=== PATIENT | female | born 2000 | race Two or more races ===

== ENCOUNTER 2018-01-15 10:58 | Emergency (ER) | payer MEDICAID ==
[2018-01-15] MEDS ORDERED: Dexamethasone 10 MG/ML SDV IM ONE (11:32)
[2018-01-15] MEDS ORDERED: Lidocaine 2% Viscous Solution 15 ML Cup PO ONE (11:33)
--- NOTE | 2018-01-15 11:37 | EDM.PDOC ---
ED HPI GENERAL MEDICAL PROBLEM - General Chief Complaint: ENT Problem Stated Complaint: SORE THROAT Time Seen by Provider: 01/15/18 11:27 - History of Present Illness INITIAL COMMENTS - FREE TEXT/NARRATIVE: HISTORY AND PHYSICAL: History of present illness: The patient is a healthy 17-year-old female who presents with 4 days of a sore throat and only having a fever on the first day. She has been able to eat or drink but only small amounts as there is discomfort. She has had no cough runny nose chest pain shortness of breath or abdominal pain. She has some pain radiating to her left ear drainage. She has no discrete neck pain or stiffness and no headache or sinus congestion. She has been taking Children's Motrin 3 teaspoons per dose for discomfort Review of systems: As per history of present illness and below otherwise all systems reviewed and negative. Past medical history: As per history of present illness and as reviewed below otherwise noncontributory. Surgical history: As per history of present illness and as reviewed below otherwise noncontributory. Social history: No reported history of drug or alcohol abuse. Family history: As per history of present illness and as reviewed below otherwise noncontributory. Physical exam: General: Well-developed well-nourished female is nontoxic and tearful on my evaluation. Vital signs are noted by me. Voice is slightly hoarse but is not muffled and she is not drooling. HEENT: Atraumatic, normocephalic, pupils reactive, negative for conjunctival pallor or scleral icterus, mucous membranes moist, throat clear of exudates but tonsils are enlarged and reddened bilaterally but not kissing, uvula is midline , there is anterior cervical adenopathy but no posterior adenopathy and no nuchal rigidity, TMs are normal bilaterally, neck supple, nontender, trachea midline. Lungs: Clear to auscultation, breath sounds equal bilaterally, chest nontender. Heart: S1S2, regular rate and rhythm no murmurs Abdomen: Soft, nondistended, nontender. NABS Pelvis: Deferred Genitourinary: Deferred. Rectal: Deferred. Extremities: Atraumatic, negative for cords or calf pain. Neurovascular unremarkable. Neuro: Awake, alert, oriented. Cranial nerves II through XII unremarkable. Cerebellum unremarkable. Motor and sensory unremarkable throughout. Exam nonfocal. Diagnostics: Therapeutics: Decadron, viscous lidocaine Impression: Tonsillitis Definitive disposition and diagnosis as appropriate pending reevaluation and review of above. throat Pain Score (Numeric/FACES): 10 - Related Data Allergies Allergy/AdvReac Type Severity Reaction Status Date / Time No Known Allergies Allergy Verified 01/15/18 11:28 Home Meds: Home Meds . [No Known Home Meds] 01/15/18 [History] Past Medical History - Past Health History Medical/Surgical History: Denies Medical/Surgical History Social & Family History - Family History Family Medical History: Noncontributory - Tobacco Use Smoking Status *Q: Never Smoker - Recreational Drug Use Recreational Drug Use: No ED ROS GENERAL - Review of Systems Review Of Systems: ROS reveals no pertinent complaints other than HPI. ED EXAM, GENERAL - Physical Exam Exam: See Below (See dictation) Course - Vital Signs Last Recorded V/S: Last Vital Signs Temp 36.2 C 01/15/18 11:29 Pulse 102 H 01/15/18 11:29 Resp 20 01/15/18 11:29 BP 118/73 01/15/18 11:29 Pulse Ox 99 01/15/18 11:29 - Orders/Labs/Meds Orders: Active Orders 24 hr Category Date Time Status Dexamethasone Med 01/15/18 11:32 Once 10 mg IM ONETIME ONE Lidocaine 2% [Xylocaine 2% Viscous] Med 01/15/18 11:33 Once 15 ml PO ONETIME ONE Medication Orders Dexamethasone (Dexamethasone) 10 mg IM ONETIME ONE Stop: 01/15/18 11:33 Lidocaine HCl (Xylocaine 2% Viscous) 15 ml PO ONETIME ONE Stop: 01/15/18 11:34 Meds: Medications Generic Name Dose Route Start Last Admin Trade Name Freq PRN Reason Stop Dose Admin Dexamethasone 10 mg 01/15/18 11:32 Dexamethasone IM 01/15/18 11:33 ONETIME ONE Lidocaine HCl 15 ml 01/15/18 11:33 Xylocaine 2% Viscous PO 01/15/18 11:34 ONETIME ONE Departure - Departure Time of Disposition: 11:36 Disposition: Home, Self-Care 01 Condition: Good Clinical Impression: Tonsillitis - Discharge Information Referrals: PCP,None [Primary Care Provider] - Additional Instructions: The following information is given to patients seen in the emergency department who are being discharged to home. This information is to outline your options for follow-up care. We provide all patients seen in our emergency department with a follow-up referral. The need for follow-up, as well as the timing and circumstances, are variable depending upon the specifics of your emergency department visit. If you don't have a primary care physician on staff, we will provide you with a referral. We always advise you to contact your personal physician following an emergency department visit to inform them of the circumstance of the visit and for follow-up with them and/or the need for any referrals to a consulting specialist. The emergency department will also refer you to a specialist when appropriate. This referral assures that you have the opportunity for followup care with a specialist. All of these measure are taken in an effort to provide you with optimal care, which includes your followup. Under all circumstances we always encourage you to contact your private physician who remains a resource for coordinating your care. When calling for followup care, please make the office aware that this follow-up is from your recent emergency room visit. If for any reason you are refused follow-up, please contact the [facility] emergency department at and ask to speak to the emergency department charge nurse. [facility] Primary care- [place] [address] Please use [id number] Tylenol 650 mg or 1gram per dose orally every 6-8 hours for pain and/or take Motrin 600-800 mg per dose every 6-8 hours. Please use antibiotics as directed and call and schedule a follow-up appointment in our clinic for reevaluation and further care. Push hydration and soft diet and return to ER as needed and as discussed - My Orders Last 24 Hours: My Active Orders 01/15/18 11:32 Dexamethasone 10 mg IM ONETIME ONE 01/15/18 11:33 Lidocaine 2% [Xylocaine 2% Viscous] 15 ml PO ONETIME ONE - Assessment/Plan Last 24 Hours: My Active Orders 01/15/18 11:32 Dexamethasone 10 mg IM ONETIME ONE 01/15/18 11:33 Lidocaine 2% [Xylocaine 2% Viscous] 15 ml PO ONETIME ONE
== END 2018-01-15 12:25 | disposition home or self-care (01) ==
LOC: MW.ED 10:58
DX: J03.90 Acute tonsillitis, unspecified (principal)
CPT/HCPCS: 96372; 99282; A9270; J1100

== ENCOUNTER 2018-01-16 15:29 | Inpatient (IN) | payer OTHER, MEDICAID ==
[2018-01-16] MEDS ORDERED: Sodium Chloride 0.9% 10 ML Syringe FLUSH PRN (15:49)
[2018-01-16] MEDS ORDERED: Sodium Chloride 0.9% 2.5 ML Syringe FLUSH PRN (15:49)
[2018-01-16] MEDS ORDERED: cefTRIAXone 2 GM in Premix Bag 1 BAG IV ONE (15:50)
[2018-01-16] MEDS ORDERED: Sodium Chloride 0.9% 1,000 ML IV ONE ×2 (15:50→19:13)
--- NOTE | 2018-01-16 16:04 | EDM.PDOC ---
<Dee Shah - Last Filed: 01/16/18 18:59> ED HPI GENERAL MEDICAL PROBLEM - General Chief Complaint: ENT Problem Stated Complaint: sore throat Time Seen by Provider: 01/16/18 15:30 - History of Present Illness INITIAL COMMENTS - FREE TEXT/NARRATIVE: HISTORY AND PHYSICAL: History of present illness: The patient is a healthy 17-year-old female who was seen here in the emergency department yesterday with a four-day history of sore throat who represented today for reevaluation for persistence of the symptoms and worsening. Yesterday the patient was evaluated and given Decadron here in the ED as well as viscous lidocaine and Augmentin for home and she says that she was unable to swallow the antibiotics that she did not take any so far. She says that the left side of her neck is more painful and she is having difficulty swallowing liquids and saliva and the pain is worsened. She has not had a fever and is afebrile here and was yesterday as well. Patient denies any cough runny nose nausea vomiting abdominal pain or shortness of breath. Review of systems: As per history of present illness and below otherwise all systems reviewed and negative. Past medical history: As per history of present illness and as reviewed below otherwise noncontributory. Surgical history: As per history of present illness and as reviewed below otherwise noncontributory. Social history: No reported history of drug or alcohol abuse. Family history: As per history of present illness and as reviewed below otherwise noncontributory. Physical exam: General: Well-developed well-nourished female who is tearful and crying on evaluation she is not drooling. Her voice is more hoarse and she refrains from speaking much due to discomfort. HEENT: Atraumatic, normocephalic, pupils reactive, negative for conjunctival pallor or scleral icterus, mucous membranes moist, neck supple, there is anterior cervical adenopathy left greater than right and there is some slight facial and soft tissue neck swelling on the left which is not well-defined, the tonsils are bilaterally enlarged but the left is slightly larger than the right and larger than yesterday's exam but the uvula is not deviated, trachea midline. When the patient attempts to range of motion the neck she states that there is discomfort and is very limited in this capacity. Lungs: Clear to auscultation, breath sounds equal bilaterally, chest nontender. No wheezing or stridor Heart: S1S2, regular rhythm and tachycardic rate of my evaluation no overt murmurs Abdomen: Soft, nondistended, nontender. NABS Pelvis: Deferred Genitourinary: Deferred. Rectal: Deferred. Extremities: Atraumatic, negative for cords or calf pain. Neurovascular unremarkable. Neuro: Awake, alert, oriented. Cranial nerves II through XII unremarkable. Cerebellum unremarkable. Motor and sensory unremarkable throughout. Exam nonfocal. Diagnostics: CBC CMP mono spot rapid strep lactic acid hCG EBV serology CT scan of the soft tissue neck Therapeutics: IV fluids Rocephin 1600: Case was discussed with our ENT physician conceptor Dr. Anderson who thinks that this is likely a case of antibiotic failure and probable mononucleosis. She recommends doing a Monospot as well as the send out serology for EBV; she says that oftentimes the Monospot will be negative for up to one week and the serology will be more helpful in the long-term care management. She agrees with routine lab evaluation IV fluids and antibiotics as the patient has not taken antibiotics. She does not feel that a second dose of Decadron is indicated as she received a dose yesterday. She does not feel that a CT scan is indicated with the clinical statement I am describing and feels that the patient will likely need observation admission for IV fluids and antibiotics and she will be available as needed for consultation. 1644: Testing results and clinical presentation of this patient were discussed with our hospitalist Dr. Garrett. He does not feel comfortable admitting this patient without further radiographic imaging of her neck to exclude anything that surgical. He is aware of my conversation with Dr. Anderson. He requests that CT scan of the soft tissue neck be performed before he will admit her for IV antibiotics and fluids. I will order that test and call him back with those results. 1805: I was just contacted by CT scan that the consulting radiologist feels that there is a lot of motion artifact on the patient's CT scan and wants a repeated. They will come and take the patient and do that right now and it will be explained to the patient. Case was endorsed to Dr. Shields to follow-up the repeat CT scan results and to discuss this case with our hospitalist Impression: Inability to tolerate by mouth fluids and antibiotics with tonsillitis Definitive disposition and diagnosis as appropriate pending reevaluation and review of above. Throat Pain Score (Numeric/FACES): 10 - Related Data Allergies Allergy/AdvReac Type Severity Reaction Status Date / Time No Known Allergies Allergy Verified 01/16/18 15:41 Home Meds: Home Meds . [No Known Home Meds] 01/15/18 [History] Past Medical History - Past Health History Medical/Surgical History: Denies Medical/Surgical History Social & Family History - Family History Family Medical History: Noncontributory - Tobacco Use Smoking Status *Q: Never Smoker - Recreational Drug Use Recreational Drug Use: No ED ROS GENERAL - Review of Systems Review Of Systems: ROS reveals no pertinent complaints other than HPI. ED EXAM, GENERAL - Physical Exam Exam: See Below (See dictation) Course - Vital Signs Last Recorded V/S: Last Vital Signs Temp 36.9 C 01/16/18 19:28 Pulse 93 01/16/18 19:02 Resp 16 01/16/18 19:02 BP 118/60 01/16/18 19:02 Pulse Ox 99 01/16/18 19:02 - Orders/Labs/Meds Orders: Active Orders 24 hr Category Date Time Status Soft Tissue Neck w Cont [CT] Stat Exams 01/16/18 16:45 Taken CULTURE STREP A CONFIRMATION [RM] Stat Lab 01/16/18 15:55 Results AMBER-MALLOY VIRUS PCR, QNT B [REF] Stat Lab 01/16/18 16:01 Received STREP SCRN A RAPID W CULT CONF [RM] Stat Lab 01/16/18 15:55 Ordered Clindamycin Phosphate in D5W [Cleocin in D5W] 900 mg Med 01/16/18 19:21 Active Premix Bag 1 bag IV ONETIME Sodium Chloride 0.9% [Normal Saline] 1,000 ml Med 01/16/18 19:13 Active IV .Bolus Sodium Chloride 0.9% [Saline Flush] Med 01/16/18 15:49 Active 10 ml FLUSH ASDIRECTED PRN Sodium Chloride 0.9% [Saline Flush] Med 01/16/18 15:49 Active 2.5 ml FLUSH ASDIRECTED PRN Saline Lock Insert [OM.PC] Stat Oth 01/16/18 15:48 Ordered Medication Orders Sodium Chloride (Normal Saline) 1,000 mls @ 999 mls/hr IV .Bolus ONE Stop: 01/16/18 20:13 Last Admin: 01/16/18 19:16 Dose: 999 mls/hr Clindamycin Phosphate 900 mg/ (Premix) 50 mls @ 100 mls/hr IV ONETIME ONE Stop: 01/16/18 19:50 Last Admin: 01/16/18 19:26 Dose: 100 mls/hr Sodium Chloride (Saline Flush) 10 ml FLUSH ASDIRECTED PRN PRN Reason: Keep Vein Open Sodium Chloride (Saline Flush) 2.5 ml FLUSH ASDIRECTED PRN PRN Reason: Keep Vein Open Labs: Laboratory Tests 01/16/18 01/16/18 01/16/18 Range/Units 15:58 15:58 15:58 WBC 18.82 H (4.0-11.0) K/uL RBC 4.33 (4.30-5.90) M/uL Hgb 14.2 (12.0-16.0) g/dL Hct 41.5 (36.0-46.0) % MCV 95.8 (80.0-98.0) fL MCH 32.8 H (27.0-32.0) pg MCHC 34.2 (31.0-37.0) g/dL RDW Std Deviation 45.9 (28.0-62.0) fl RDW Coeff of Scarlet 13 (11.0-15.0) % Plt Count 319 (150-400) K/uL MPV 11.20 (7.40-12.00) fL Neut % (Auto) 76.0 (48.0-80.0) % Lymph % (Auto) 13.9 L (16.0-40.0) % [place] % (Auto) 9.8 (0.0-15.0) % Eos % (Auto) 0.1 (0.0-7.0) % Baso % (Auto) 0.2 (0.0-1.5) % Neut # (Auto) 14.3 H (1.4-5.7) K/uL Lymph # (Auto) 2.6 H (0.6-2.4) K/uL [place] # (Auto) 1.8 H (0.0-0.8) K/uL Eos # (Auto) 0.0 (0.0-0.7) K/uL Baso # (Auto) 0.0 (0.0-0.1) K/uL Nucleated RBC % 0.0 /100WBC Nucleated RBCs # 0 K/uL Lactate 0.8 (0.20-2.00) mmol/L Sodium 139 (136-145) mmol/L Potassium 3.2 L (3.5-5.1) mmol/L Chloride 104 (98-107) mmol/L Carbon Dioxide 27.0 (21.0-32.0) mmol/L BUN 8 (7.0-18.0) mg/dL Creatinine 0.8 (0.6-1.0) mg/dL Est Cr Clr Drug Dosing 93.56 mL/min Estimated GFR (MDRD) > 60.0 ml/min Glucose 89 (74-106) mg/dL Calcium 9.1 (8.5-10.1) mg/dL Total Bilirubin 0.4 (0.2-1.0) mg/dL AST 17 (15-37) IU/L ALT 28 (14-63) IU/L Alkaline Phosphatase 59 (46-116) U/L Total Protein 8.1 (6.4-8.2) g/dL Albumin 3.4 (3.4-5.0) g/dL Globulin 4.7 H (2.0-3.5) g/dL Albumin/Globulin Ratio 0.7 L (1.3-2.8) HCG, Qual (NEG) Monoscreen (NEG) 01/16/18 Range/Units 15:58 WBC (4.0-11.0) K/uL RBC (4.30-5.90) M/uL Hgb (12.0-16.0) g/dL Hct (36.0-46.0) % MCV (80.0-98.0) fL MCH (27.0-32.0) pg MCHC (31.0-37.0) g/dL RDW Std Deviation (28.0-62.0) fl RDW Coeff of Scarlet (11.0-15.0) % Plt Count (150-400) K/uL MPV (7.40-12.00) fL Neut % (Auto) (48.0-80.0) % Lymph % (Auto) (16.0-40.0) % [place] % (Auto) (0.0-15.0) % Eos % (Auto) (0.0-7.0) % Baso % (Auto) (0.0-1.5) % Neut # (Auto) (1.4-5.7) K/uL Lymph # (Auto) (0.6-2.4) K/uL [place] # (Auto) (0.0-0.8) K/uL Eos # (Auto) (0.0-0.7) K/uL Baso # (Auto) (0.0-0.1) K/uL Nucleated RBC % /100WBC Nucleated RBCs # K/uL Lactate (0.20-2.00) mmol/L Sodium (136-145) mmol/L Potassium (3.5-5.1) mmol/L Chloride (98-107) mmol/L Carbon Dioxide (21.0-32.0) mmol/L BUN (7.0-18.0) mg/dL Creatinine (0.6-1.0) mg/dL Est Cr Clr Drug Dosing mL/min Estimated GFR (MDRD) ml/min Glucose (74-106) mg/dL Calcium (8.5-10.1) mg/dL Total Bilirubin (0.2-1.0) mg/dL AST (15-37) IU/L ALT (14-63) IU/L Alkaline Phosphatase (46-116) U/L Total Protein (6.4-8.2) g/dL Albumin (3.4-5.0) g/dL Globulin (2.0-3.5) g/dL Albumin/Globulin Ratio (1.3-2.8) HCG, Qual NEGATIVE (NEG) Monoscreen NEGATIVE (NEG) Meds: Medications Generic Name Dose Route Start Last Admin Trade Name Freq PRN Reason Stop Dose Admin Sodium Chloride 1,000 mls @ 999 mls/hr 01/16/18 19:13 01/16/18 19:16 Normal Saline IV 01/16/18 20:13 999 mls/hr .Bolus ONE Administration Clindamycin Phosphate 900 mg/ 50 mls @ 100 mls/hr 01/16/18 19:21 01/16/18 19: 26 Premix IV 01/16/18 19:50 100 mls/hr ONETIME ONE Administration Sodium Chloride 10 ml 07/09/18 15:49 Saline Flush FLUSH ASDIRECTED PRN Keep Vein Open Sodium Chloride 2.5 ml 01/16/18 15:49 Saline Flush FLUSH ASDIRECTED PRN Keep Vein Open Discontinued Medications Generic Name Dose Route Start Last Admin Trade Name Kip PRN Reason Stop Dose Admin Clindamycin Phosphate 900 mg 01/16/18 19:13 Cleocin IV 01/16/18 19:14 ONETIME STA Ceftriaxone Sodium/Dextrose 2 50 mls @ 100 mls/hr 01/16/18 15:50 01/16/18 16: 04 gm/ Premix IV 01/16/18 16:19 100 mls/hr ONETIME ONE Administration Sodium Chloride 1,000 mls @ 999 mls/hr 01/16/18 15:50 01/16/18 16:03 Normal Saline IV 01/16/18 16:50 999 mls/hr STAT ONE Administration Clindamycin Phosphate Confirm 01/16/18 19:20 Cleocin In D5w Administered 01/16/18 19:21 Dose 50 mls @ as directed IV .STK-MED ONE Iopamidol 75 ml 01/16/18 17:13 01/16/18 17:17 Isovue Multipack-370 (76%) IVPUSH 01/16/18 17:14 75 ml ONETIME STA Administration Ketorolac Tromethamine 30 mg 01/16/18 16:25 01/16/18 16:31 Toradol IVPUSH 01/16/18 16:26 30 mg ONETIME ONE Administration Departure - Departure Disposition: Admitted As Inpatient 64 Clinical Impression: Pharyngeal abscess - Discharge Information Referrals: PCP,None [Primary Care Provider] - Forms: ED Department Discharge - My Orders Last 24 Hours: My Active Orders 01/16/18 19:13 Sodium Chloride 0.9% [Normal Saline] 1,000 ml IV .Bolus - Assessment/Plan Last 24 Hours: My Active Orders 01/16/18 19:13 Sodium Chloride 0.9% [Normal Saline] 1,000 ml IV .Bolus <Jayce Shields - Last Filed: 01/16/18 19:33> ED HPI GENERAL MEDICAL PROBLEM - History of Present Illness INITIAL COMMENTS - FREE TEXT/NARRATIVE: CT demonstrates a 2 x 1.2 x 2.3 cm left pharyngeal tonsillar abscess there is some associated narrowing of the oropharyngeal airway infiltration of the parapharyngeal fat on the left with inflammatory changes extending adjacent is noted. I discussed case with Dr. Justin VILLALBA and asked if she would prefer to keep the patient in the emergency department for evaluation prior to admission at this time she states she will see the patient on the floor I did discuss case also with Dr. Garrett will come to the ED to see the patient for evaluation for the admission thank you Departure - Departure Time of Disposition: 19:32 Condition: Good
[2018-01-16] MEDS ORDERED: Ketorolac 30 MG/ML SDV IVPUSH ONE ×2 (16:25→22:43)
[2018-01-16 16:27] LABS: CHLORIDE,CL 104 mmol/L (98-107); SODIUM,NA 139 mmol/L (136-145)
[2018-01-16] MEDS ORDERED: Iopamidol 755 MG/ML 500 ML Multipack Bottle IVPUSH STA (17:13)
[2018-01-16] MEDS ORDERED: Clindamycin Phosphate 900 MG/6 ML SDV IV STA (19:13)
[2018-01-16] MEDS ORDERED: Clindamycin Phosphate in D5W 50 ML IV ONE (19:20)
[2018-01-16] MEDS ORDERED: Clindamycin Phosphate in D5W 900 MG in Premix Bag 1 BAG IV ONE ×2 (19:21)
--- NOTE | 2018-01-16 19:56 | CT ---
EXAM DATE: 01/16/18 PATIENT'S AGE: 17 Patient: FRANCES GONZALEZ Facility: [place], [place] : 2000 Study: CT ST Neck W CONT [id number]/9/2018 6:46:48 PM Ordering Physician: JOVANI MOJICA MD Final Report: HISTORY: Sore throat. Evaluate for peritonsillar or retropharyngeal abscess. TECHNIQUE: Intravenous contrast enhanced CT of the neck. The initial CT was limited by motion artifact. Repeat contrast-enhanced study was therefore performed to better delineate pathology. COMPARISON: No prior. FINDINGS: On the repeat study, there is asymmetric enlargement of the left compared to right pharyngeal tonsil. An approximately 2.0 x 1.2 x 2.3 cm left pharyngeal tonsillar abscess is present. This is seen on image #155 series 4. It was not apparent on the initial motion limited study secondary to limitations of the prior study. Associated narrowing of the oropharyngeal airway. There is associated inflammatory change which extends to involve the left parapharyngeal fat and abut the left submandibular gland. There is also inflammatory change which extends inferiorly to involve the supraglottic larynx where there is soft tissue swelling. The left aspect of the epiglottis is thickened. There is mild narrowing of the supraglottic laryngeal airway. Process does not extend below the level of the vocal cords. Tracheal airway is patent. Left greater than right neck lymph adenopathy is present. No infiltrate within the lung apices. Vasculature appears patent. The mastoid air cells and middle ear cavities are clear. Included portions of paranasal sinuses are clear. IMPRESSION: 1. Two acquisitions performed as the initial CT acquisition was limited by motion artifact. 2. Asymmetric enlargement left compared to right pharyngeal tonsil with a 2 x 1.2 x 2.3 cm left tonsillar abscess. Associated narrowing of oropharyngeal airway. 3. Inflammatory change extends laterally and inferiorly. Inferiorly there is infiltration of the supraglottic larynx with soft tissue swelling and mild thickening left aspect of the epiglottis. Mild narrowing of the supraglottic airway. Process does not extend below the level the vocal cords. 4. The tracheal airway is patent. 5. Bilateral neck lymphadenopathy, left greater than right. - Findings discussed with Dr. Shields on 01/16/2018 at 19:23. Please note that all CT scans at this facility use dose modulation, iterative reconstruction, and/or weight-based dosing when appropriate to reduce radiation dose to as low as reasonably achievable. Dictated by Johnathan Betts MD @ Jan 16 2018 7:26PM (Electronic Signature) Report Signed by Proxy. MTDD
[2018-01-16] MEDS ORDERED: Ondansetron 4 MG/2 ML SDV IVPUSH PRN (20:12)
--- NOTE | 2018-01-16 20:20 | PCM.HP ---
H&P History of Present Illness - General Date of Service: 01/16/18 Admit Problem/Dx: Admission Diagnosis/Problem Admission Diagnosis/Problem Abscess - History of Present Illness Initial Comments - Free Text/Narative: 17 yo female who was seen in the ED yesterday with four day history of sore throat and was given Augmentin. Patient reports to the ED today stating she was unable to swallow the antibiotic. She has difficulty swallowing her saliva. She reports fevers and chills. She denies any difficulty breathing. CT scan of neck reported left tonsilar abscess. Throat Pain Score (Numeric/FACES): 8 - Related Data Allergies/Adverse Reactions: Allergies Allergy/AdvReac Type Severity Reaction Status Date / Time No Known Allergies Allergy Verified 01/16/18 15:41 Home Medications: Home Meds . [No Known Home Meds] 01/15/18 [History] Past Medical History - Past Health History Medical/Surgical History: Denies Medical/Surgical History Social & Family History - Family History Family Medical History: Noncontributory - Tobacco Use Smoking Status *Q: Never Smoker - Recreational Drug Use Recreational Drug Use: No H&P Review of Systems - Review of Systems: Review Of Systems: ROS reveals no pertinent complaints other than HPI. Exam - Exam Exam: See Below - Vital Signs Vital Signs: Last Vital Signs Temp 36.9 C 01/16/18 19:28 Pulse 93 01/16/18 19:02 Resp 16 01/16/18 19:02 BP 118/60 01/16/18 19:02 Pulse Ox 99 01/16/18 19:02 Weight: 84.2 kg - Exam General: Alert, Oriented HEENT: Mucosa Moist & [place], Other (erythema of posterior pharynx) Neck: Supple Lungs: Clear to Auscultation, Normal Respiratory Effort Cardiovascular: Regular Rate, Regular Rhythm GI/Abdominal Exam: Normal Bowel Sounds, Soft, Non-Tender, No Organomegaly Extremities: Non-Tender, No Pedal Edema Skin: Warm, Dry, Intact - Patient Data Lab Results Last 24 hrs: Laboratory Results - last 24 hr 01/16/18 01/16/18 01/16/18 Range/Units 15:58 15:58 15:58 WBC 18.82 H (4.0-11.0) K/uL RBC 4.33 (4.30-5.90) M/uL Hgb 14.2 (12.0-16.0) g/dL Hct 41.5 (36.0-46.0) % MCV 95.8 (80.0-98.0) fL MCH 32.8 H (27.0-32.0) pg MCHC 34.2 (31.0-37.0) g/dL RDW Std Deviation 45.9 (28.0-62.0) fl RDW Coeff of Scarlet 13 (11.0-15.0) % Plt Count 319 (150-400) K/uL MPV 11.20 (7.40-12.00) fL Neut % (Auto) 76.0 (48.0-80.0) % Lymph % (Auto) 13.9 L (16.0-40.0) % [place] % (Auto) 9.8 (0.0-15.0) % Eos % (Auto) 0.1 (0.0-7.0) % Baso % (Auto) 0.2 (0.0-1.5) % Neut # (Auto) 14.3 H (1.4-5.7) K/uL Lymph # (Auto) 2.6 H (0.6-2.4) K/uL [place] # (Auto) 1.8 H (0.0-0.8) K/uL Eos # (Auto) 0.0 (0.0-0.7) K/uL Baso # (Auto) 0.0 (0.0-0.1) K/uL Nucleated RBC % 0.0 /100WBC Nucleated RBCs # 0 K/uL Lactate 0.8 (0.20-2.00) mmol/L Sodium 139 (136-145) mmol/L Potassium 3.2 L (3.5-5.1) mmol/L Chloride 104 (98-107) mmol/L Carbon Dioxide 27.0 (21.0-32.0) mmol/L BUN 8 (7.0-18.0) mg/dL Creatinine 0.8 (0.6-1.0) mg/dL Est Cr Clr Drug Dosing 93.56 mL/min Estimated GFR (MDRD) > 60.0 ml/min Glucose 89 (74-106) mg/dL Calcium 9.1 (8.5-10.1) mg/dL Total Bilirubin 0.4 (0.2-1.0) mg/dL AST 17 (15-37) IU/L ALT 28 (14-63) IU/L Alkaline Phosphatase 59 (46-116) U/L Total Protein 8.1 (6.4-8.2) g/dL Albumin 3.4 (3.4-5.0) g/dL Globulin 4.7 H (2.0-3.5) g/dL Albumin/Globulin Ratio 0.7 L (1.3-2.8) HCG, Qual (NEG) Monoscreen (NEG) 01/16/18 Range/Units 15:58 WBC (4.0-11.0) K/uL RBC (4.30-5.90) M/uL Hgb (12.0-16.0) g/dL Hct (36.0-46.0) % MCV (80.0-98.0) fL MCH (27.0-32.0) pg MCHC (31.0-37.0) g/dL RDW Std Deviation (28.0-62.0) fl RDW Coeff of Scarlet (11.0-15.0) % Plt Count (150-400) K/uL MPV (7.40-12.00) fL Neut % (Auto) (48.0-80.0) % Lymph % (Auto) (16.0-40.0) % [place] % (Auto) (0.0-15.0) % Eos % (Auto) (0.0-7.0) % Baso % (Auto) (0.0-1.5) % Neut # (Auto) (1.4-5.7) K/uL Lymph # (Auto) (0.6-2.4) K/uL [place] # (Auto) (0.0-0.8) K/uL Eos # (Auto) (0.0-0.7) K/uL Baso # (Auto) (0.0-0.1) K/uL Nucleated RBC % /100WBC Nucleated RBCs # K/uL Lactate (0.20-2.00) mmol/L Sodium (136-145) mmol/L Potassium (3.5-5.1) mmol/L Chloride (98-107) mmol/L Carbon Dioxide (21.0-32.0) mmol/L BUN (7.0-18.0) mg/dL Creatinine (0.6-1.0) mg/dL Est Cr Clr Drug Dosing mL/min Estimated GFR (MDRD) ml/min Glucose (74-106) mg/dL Calcium (8.5-10.1) mg/dL Total Bilirubin (0.2-1.0) mg/dL AST (15-37) IU/L ALT (14-63) IU/L Alkaline Phosphatase (46-116) U/L Total Protein (6.4-8.2) g/dL Albumin (3.4-5.0) g/dL Globulin (2.0-3.5) g/dL Albumin/Globulin Ratio (1.3-2.8) HCG, Qual NEGATIVE (NEG) Monoscreen NEGATIVE (NEG) Result Diagrams: 01/17/18 05:04 01/17/18 05:04 Bigg Results Last 24 hrs: Microbiology 01/16/18 15:55 Group A Streptococcus Rapid Screen - Final Throat NEGATIVE STREP A SCREEN Problem List Initiated/Reviewed/Updated: Yes Orders Last 24hrs: Active Orders 24 hr Category Date Time Status Patient Status [ADT] Stat ADT 01/16/18 19:34 Active Notify Provider Consults [RC] ASDIRECTED Care 01/16/18 19:37 Active Oxygen Therapy [RC] PRN Care 01/16/18 20:12 Ordered Up ad Luanne [RC] ASDIRECTED Care 01/16/18 20:12 Ordered VTE/DVT Education [RC] PER UNIT ROUTINE Care 01/16/18 20:12 Ordered Vital Signs [RC] Q4H Care 01/16/18 20:12 Ordered Consult to Physician [CONS] Stat Cons 01/16/18 19:36 Active Nothing per Oral Now Diet [DIET] Diet 01/16/18 Breakfast Ordered BASIC METABOLIC PANEL,BMP [CHEM] AM Lab 01/17/18 05:11 Ordered CBC WITH AUTO DIFF [HEME] AM Lab 01/17/18 05:11 Ordered CULTURE STREP A CONFIRMATION [RM] Stat Lab 01/16/18 15:55 Results AMBER-MALLOY VIRUS PCR, QNT B [REF] Stat Lab 01/16/18 16:01 Received STREP SCRN A RAPID W CULT CONF [RM] Stat Lab 01/16/18 15:55 Ordered Clindamycin Phosphate [Cleocin] 300 mg Med 01/17/18 02:00 Ordered Sodium Chloride 0.9% [Normal Saline] 50 ml IV Q6H Morphine Med 01/16/18 20:12 Ordered 2 mg IVPUSH Q3H PRN Ondansetron [Zofran] Med 01/16/18 20:12 Ordered 4 mg IVPUSH Q4H PRN Sodium Chloride 0.9% [Saline Flush] Med 01/16/18 15:49 Active 10 ml FLUSH ASDIRECTED PRN Sodium Chloride 0.9% [Saline Flush] Med 01/16/18 15:49 Active 2.5 ml FLUSH ASDIRECTED PRN cefTRIAXone [Rocephin] 1 gm Med 01/17/18 16:00 Ordered Sodium Chloride 0.9% [Normal Saline] 50 ml IV Q24H Saline Lock Insert [OM.PC] Stat Oth 01/16/18 15:48 Ordered Sequential Compression Device [OM.PC] Per Unit Routine Oth 01/16/18 20:13 Ordered Resuscitation Status Routine Resus Stat 01/16/18 20:12 Ordered Medication Orders Ceftriaxone Sodium 1 gm/ (Sodium Chloride) 50 mls @ 100 mls/hr IV Q24H NOHELIA Clindamycin Phosphate 300 mg/ (Sodium Chloride) 52 mls @ 100 mls/hr IV Q6H NOHELIA Morphine Sulfate (Morphine) 2 mg IVPUSH Q3H PRN PRN Reason: Pain (severe 7-10) Stop: 01/17/18 20:13 Ondansetron HCl (Zofran) 4 mg IVPUSH Q4H PRN PRN Reason: Nausea Sodium Chloride (Saline Flush) 10 ml FLUSH ASDIRECTED PRN PRN Reason: Keep Vein Open Sodium Chloride (Saline Flush) 2.5 ml FLUSH ASDIRECTED PRN PRN Reason: Keep Vein Open Assessment/Plan Comment:: 17 yo female admitted with tonsilar abscess. We will treat with rocephin and clindamycin. Dr. Anderson has been consulted. We will keep NPO
[2018-01-16] MEDS: Morphine 4 MG/ML Syringe IVPUSH PRN (20:40)
[2018-01-16] MEDS: Sodium Chloride 0.9% 1,000 ML IV SCH (21:14)
[2018-01-17] MEDS: Clindamycin Phosphate in D5W 300 MG in Premix Bag 1 BAG IV SCH ×8 (00:13→18:05)
[2018-01-17] MEDS: Morphine 4 MG/ML Syringe IVPUSH PRN ×3 (02:39→10:45)
[2018-01-17] MEDS: Sodium Chloride 0.9% 1,000 ML IV SCH ×3 (04:31→20:23)
[2018-01-17 05:56] LABS: CHLORIDE,CL 102 mmol/L (98-107); SODIUM,NA 136 mmol/L (136-145)
[2018-01-17] MEDS ORDERED: Lidocaine 1% with EPINEPHrine 1:100,000 20 ML MDV ONE (06:45)
[2018-01-17] MEDS ORDERED: Benzocaine 20% Topical Spray UD MUCMEM ONE (08:00)
[2018-01-17] MEDS ORDERED: Lidocaine 1% with EPINEPHrine 1:100,000 10 ML MDV INJECT ONE (08:00)
[2018-01-17] MEDS ORDERED: Acetaminophen 650 MG in Premix Bag 1 BAG IV ONE (08:31)
--- NOTE | 2018-01-17 09:38 | PCM.PN ---
- General Info Date of Service: 01/17/18 - Review of Systems Systems Review Comment:: patient reports sore throat, not able to swallow much, no problem with breathing - Patient Data Vitals - Most Recent: Last Vital Signs Temp 37.0 C 01/17/18 08:00 Pulse 110 H 01/17/18 07:00 Resp 17 01/17/18 08:00 BP 109/61 01/17/18 08:00 Pulse Ox 96 01/17/18 08:00 Weight - Most Recent: 84.2 kg I&O - Last 24 Hours: Intake & Output 01/16/18 01/17/18 01/17/18 22:59 06:59 14:59 Intake Total 999 700 Output Total 1350 Balance 999 -650 Lab Results Last 24 Hours: Laboratory Results - last 24 hr 01/16/18 01/16/18 01/16/18 Range/Units 15:58 15:58 15:58 WBC 18.82 H (4.0-11.0) K/uL RBC 4.33 (4.30-5.90) M/uL Hgb 14.2 (12.0-16.0) g/dL Hct 41.5 (36.0-46.0) % MCV 95.8 (80.0-98.0) fL MCH 32.8 H (27.0-32.0) pg MCHC 34.2 (31.0-37.0) g/dL RDW Std Deviation 45.9 (28.0-62.0) fl RDW Coeff of Scarlet 13 (11.0-15.0) % Plt Count 319 (150-400) K/uL MPV 11.20 (7.40-12.00) fL Neut % (Auto) 76.0 (48.0-80.0) % Lymph % (Auto) 13.9 L (16.0-40.0) % [place] % (Auto) 9.8 (0.0-15.0) % Eos % (Auto) 0.1 (0.0-7.0) % Baso % (Auto) 0.2 (0.0-1.5) % Neut # (Auto) 14.3 H (1.4-5.7) K/uL Lymph # (Auto) 2.6 H (0.6-2.4) K/uL [place] # (Auto) 1.8 H (0.0-0.8) K/uL Eos # (Auto) 0.0 (0.0-0.7) K/uL Baso # (Auto) 0.0 (0.0-0.1) K/uL Nucleated RBC % 0.0 /100WBC Nucleated RBCs # 0 K/uL Lactate 0.8 (0.20-2.00) mmol/L Sodium 139 (136-145) mmol/L Potassium 3.2 L (3.5-5.1) mmol/L Chloride 104 (98-107) mmol/L Carbon Dioxide 27.0 (21.0-32.0) mmol/L BUN 8 (7.0-18.0) mg/dL Creatinine 0.8 (0.6-1.0) mg/dL Est Cr Clr Drug Dosing 93.56 mL/min Estimated GFR (MDRD) > 60.0 ml/min Glucose 89 (74-106) mg/dL Calcium 9.1 (8.5-10.1) mg/dL Total Bilirubin 0.4 (0.2-1.0) mg/dL AST 17 (15-37) IU/L ALT 28 (14-63) IU/L Alkaline Phosphatase 59 (46-116) U/L Total Protein 8.1 (6.4-8.2) g/dL Albumin 3.4 (3.4-5.0) g/dL Globulin 4.7 H (2.0-3.5) g/dL Albumin/Globulin Ratio 0.7 L (1.3-2.8) HCG, Qual (NEG) Monoscreen (NEG) 01/16/18 01/17/18 01/17/18 Range/Units 15:58 05:04 05:04 WBC 15.46 H (4.0-11.0) K/uL RBC 3.70 L (4.30-5.90) M/uL Hgb 12.2 (12.0-16.0) g/dL Hct 35.5 L (36.0-46.0) % MCV 95.9 (80.0-98.0) fL MCH 33.0 H (27.0-32.0) pg MCHC 34.4 (31.0-37.0) g/dL RDW Std Deviation 46.9 (28.0-62.0) fl RDW Coeff of Scarlet 13 (11.0-15.0) % Plt Count 277 (150-400) K/uL MPV 10.90 (7.40-12.00) fL Neut % (Auto) 70.4 (48.0-80.0) % Lymph % (Auto) 18.6 (16.0-40.0) % [place] % (Auto) 10.5 (0.0-15.0) % Eos % (Auto) 0.2 (0.0-7.0) % Baso % (Auto) 0.3 (0.0-1.5) % Neut # (Auto) 10.9 H (1.4-5.7) K/uL Lymph # (Auto) 2.9 H (0.6-2.4) K/uL [place] # (Auto) 1.6 H (0.0-0.8) K/uL Eos # (Auto) 0.0 (0.0-0.7) K/uL Baso # (Auto) 0.0 (0.0-0.1) K/uL Nucleated RBC % 0.0 /100WBC Nucleated RBCs # 0 K/uL Lactate (0.20-2.00) mmol/L Sodium 136 (136-145) mmol/L Potassium 3.3 L (3.5-5.1) mmol/L Chloride 102 (98-107) mmol/L Carbon Dioxide 25.0 (21.0-32.0) mmol/L BUN 5 L (7.0-18.0) mg/dL Creatinine 0.6 (0.6-1.0) mg/dL Est Cr Clr Drug Dosing 124.75 mL/min Estimated GFR (MDRD) > 60.0 ml/min Glucose 92 (74-106) mg/dL Calcium 8.1 L (8.5-10.1) mg/dL Total Bilirubin (0.2-1.0) mg/dL AST (15-37) IU/L ALT (14-63) IU/L Alkaline Phosphatase (46-116) U/L Total Protein (6.4-8.2) g/dL Albumin (3.4-5.0) g/dL Globulin (2.0-3.5) g/dL Albumin/Globulin Ratio (1.3-2.8) HCG, Qual NEGATIVE (NEG) Monoscreen NEGATIVE (NEG) Bigg Results Last 24 Hours: Microbiology 01/17/18 05:09 Anaerobic Blood Culture - Final Blood - Venous - Lab Draw 01/16/18 15:55 Group A Streptococcus Rapid Screen - Final Throat NEGATIVE STREP A SCREEN Med Orders - Current: Current Medications Ceftriaxone Sodium 1 gm/ (Sodium Chloride) 50 mls @ 100 mls/hr IV Q24H NOHELIA Clindamycin Phosphate 300 mg/ (Premix) 50 mls @ 96.154 mls/hr IV Q6H [facility] Last Admin: 01/17/18 06:42 Dose: 96.154 mls/hr Sodium Chloride (Normal Saline) 1,000 mls @ 150 mls/hr IV ASDIRECTED [facility] Last Admin: 01/17/18 04:31 Dose: 150 mls/hr Morphine Sulfate (Morphine) 2 mg IVPUSH Q3H PRN PRN Reason: Pain (severe 7-10) Stop: 01/17/18 20:13 Last Admin: 01/17/18 07:24 Dose: 2 mg Ondansetron HCl (Zofran) 4 mg IVPUSH Q4H PRN PRN Reason: Nausea Sodium Chloride (Saline Flush) 10 ml FLUSH ASDIRECTED PRN PRN Reason: Keep Vein Open Sodium Chloride (Saline Flush) 2.5 ml FLUSH ASDIRECTED PRN PRN Reason: Keep Vein Open Discontinued Medications Benzocaine (Hurricaine One 20%) 1 each MUCMEM ONETIME ONE Stop: 01/17/18 08:01 Clindamycin Phosphate (Cleocin) 900 mg IV ONETIME STA Stop: 01/16/18 19:14 Last Admin: 01/16/18 19:36 Dose: Not Given Ceftriaxone Sodium/Dextrose 2 (gm/ Premix) 50 mls @ 100 mls/hr IV ONETIME ONE Stop: 01/16/18 16:19 Last Admin: 01/16/18 16:04 Dose: 100 mls/hr Sodium Chloride (Normal Saline) 1,000 mls @ 999 mls/hr IV STAT ONE Stop: 01/16/18 16:50 Last Admin: 01/16/18 16:03 Dose: 999 mls/hr Sodium Chloride (Normal Saline) 1,000 mls @ 999 mls/hr IV .Bolus ONE Stop: 01/16/18 20:13 Last Admin: 01/16/18 19:16 Dose: 999 mls/hr Clindamycin Phosphate 900 mg/ (Premix) 50 mls @ 100 mls/hr IV ONETIME ONE Stop: 01/16/18 19:50 Last Admin: 01/16/18 19:26 Dose: 100 mls/hr Clindamycin Phosphate (Cleocin In D5w) Confirm Administered Dose 50 mls @ as directed IV .STK-MED ONE Stop: 01/16/18 19:21 Last Admin: 01/16/18 19:35 Dose: Not Given Acetaminophen 650 mg/ Premix 65 mls @ 400 mls/hr IV NOW ONE Stop: 01/17/18 08:40 Last Admin: 01/17/18 08:48 Dose: 400 mls/hr Iopamidol (Isovue Multipack-370 (76%)) 75 ml IVPUSH ONETIME STA Stop: 01/16/18 17:14 Last Admin: 01/16/18 17:17 Dose: 75 ml Ketorolac Tromethamine (Toradol) 30 mg IVPUSH ONETIME ONE Stop: 01/16/18 16:26 Last Admin: 01/16/18 16:31 Dose: 30 mg Ketorolac Tromethamine (Toradol) 30 mg IVPUSH ONETIME ONE Stop: 01/16/18 22:44 Last Admin: 01/16/18 22:48 Dose: 30 mg Lidocaine/Epinephrine (Xylocaine 1% With Epinephrine 1:100,000) 10 ml INJECT ONETIME ONE Stop: 01/17/18 08:01 Lidocaine/Epinephrine (Xylocaine 1% With Epinephrine 1:100,000) Confirm Administered Dose 20 ml .ROUTE .STK-MED ONE Stop: 01/17/18 06:46 - Exam General: Alert, Oriented HEENT: Mucous Membr. Moist/[place] Lungs: Clear to Auscultation, Normal Respiratory Effort Cardiovascular: Regular Rate, Regular Rhythm GI/Abdominal Exam: Soft, Non-Tender Extremities: Non-Tender Skin: Warm, Dry, Intact - Problem List Review Problem List Initiated/Reviewed/Updated: Yes - My Orders Last 24 Hours: My Active Orders 01/16/18 20:12 Oxygen Therapy [RC] PRN Up ad Luanne [RC] ASDIRECTED VTE/DVT Education [RC] PER UNIT ROUTINE Vital Signs [RC] Q1H Morphine 2 mg IVPUSH Q3H PRN Ondansetron [Zofran] 4 mg IVPUSH Q4H PRN Resuscitation Status Routine 01/16/18 20:13 Sequential Compression Device [OM.PC] Per Unit Routine 01/16/18 20:30 Sodium Chloride 0.9% [Normal Saline] 1,000 ml IV ASDIRECTED 01/17/18 01:00 Clindamycin Phosphate in D5W [Cleocin in D5W] 300 mg Premix Bag 1 bag IV Q6H 01/17/18 16:00 cefTRIAXone [Rocephin] 1 gm Sodium Chloride 0.9% [Normal Saline] 50 ml IV Q24H - Plan Plan:: 17 yo female admitted with tonsilar abscess. We will continue Rocephin and clindamycin. Dr. Anderson has been consulted and will see patient this morning. We will keep NPO
[2018-01-17] MEDS: Acetaminophen 325 MG Tab PO SCH ×3 (13:37→20:22)
--- NOTE | 2018-01-17 13:58 | PCM.CONS ---
H&P History of Present Illness - General Date of Service: 01/17/18 Admit Problem/Dx: Admission Diagnosis/Problem Admission Diagnosis/Problem Abscess - History of Present Illness Initial Comments - Free Text/Narative: Patient developed a generalized sore throat 5 days ago. On the day of onset she reported high fever subsequently she reports being afebrile. Denies any associated upper respiratory tract infection. Sore throat worsened and localized to the left side and she came to ER a couple of days ago and was discharged with oral medication. Yesterday she developed severe odynophagia and was unable to take her by mouth medications or swallow and hence was admitted through ER. A CT scan was done which was suggestive of left peritonsillar collection. Throat Pain Score (Numeric/FACES): 5 - Related Data Allergies/Adverse Reactions: Allergies Allergy/AdvReac Type Severity Reaction Status Date / Time No Known Allergies Allergy Verified 01/16/18 15:41 Home Medications: Home Meds . [No Known Home Meds] 01/15/18 [History] Past Medical History - Past Health History Medical/Surgical History: Denies Medical/Surgical History Social & Family History - Family History Family Medical History: Noncontributory - Tobacco Use Smoking Status *Q: Never Smoker - Caffeine Use Caffeine Use: Reports: None - Recreational Drug Use Recreational Drug Use: No H&P Review of Systems - Review of Systems: Review Of Systems: ROS reveals no pertinent complaints other than HPI. Exam - Exam Exam: See Below - Vital Signs Vital Signs: Last Vital Signs Temp 36.6 C 01/17/18 12:00 Pulse 110 H 01/17/18 07:00 Resp 16 01/17/18 13:00 BP 116/76 01/17/18 13:00 Pulse Ox 98 01/17/18 13:00 Weight: 84.2 kg - Exam Physical Exam Comments:: Patient seems to be in pain. Oral cavity oropharynx- mild trismus; bilateral tonsils appear normal. Mild enlargement of left tonsil as compared to the right side. No peritonsillar swelling or bulge is noted. Nasal cavity - normal Ears- normal Neck- lateral tender upper cervical lymphadenopathy. Normal range of neck movements. - Patient Data Lab Results Last 24 hrs: Laboratory Results - last 24 hr 01/16/18 01/16/18 01/16/18 Range/Units 15:58 15:58 15:58 WBC 18.82 H (4.0-11.0) K/uL RBC 4.33 (4.30-5.90) M/uL Hgb 14.2 (12.0-16.0) g/dL Hct 41.5 (36.0-46.0) % MCV 95.8 (80.0-98.0) fL MCH 32.8 H (27.0-32.0) pg MCHC 34.2 (31.0-37.0) g/dL RDW Std Deviation 45.9 (28.0-62.0) fl RDW Coeff of Scarlet 13 (11.0-15.0) % Plt Count 319 (150-400) K/uL MPV 11.20 (7.40-12.00) fL Neut % (Auto) 76.0 (48.0-80.0) % Lymph % (Auto) 13.9 L (16.0-40.0) % [place] % (Auto) 9.8 (0.0-15.0) % Eos % (Auto) 0.1 (0.0-7.0) % Baso % (Auto) 0.2 (0.0-1.5) % Neut # (Auto) 14.3 H (1.4-5.7) K/uL Lymph # (Auto) 2.6 H (0.6-2.4) K/uL [place] # (Auto) 1.8 H (0.0-0.8) K/uL Eos # (Auto) 0.0 (0.0-0.7) K/uL Baso # (Auto) 0.0 (0.0-0.1) K/uL Nucleated RBC % 0.0 /100WBC Nucleated RBCs # 0 K/uL Lactate 0.8 (0.20-2.00) mmol/L Sodium 139 (136-145) mmol/L Potassium 3.2 L (3.5-5.1) mmol/L Chloride 104 (98-107) mmol/L Carbon Dioxide 27.0 (21.0-32.0) mmol/L BUN 8 (7.0-18.0) mg/dL Creatinine 0.8 (0.6-1.0) mg/dL Est Cr Clr Drug Dosing 93.56 mL/min Estimated GFR (MDRD) > 60.0 ml/min Glucose 89 (74-106) mg/dL Calcium 9.1 (8.5-10.1) mg/dL Total Bilirubin 0.4 (0.2-1.0) mg/dL AST 17 (15-37) IU/L ALT 28 (14-63) IU/L Alkaline Phosphatase 59 (46-116) U/L Total Protein 8.1 (6.4-8.2) g/dL Albumin 3.4 (3.4-5.0) g/dL Globulin 4.7 H (2.0-3.5) g/dL Albumin/Globulin Ratio 0.7 L (1.3-2.8) HCG, Qual (NEG) Monoscreen (NEG) 01/16/18 01/17/18 01/17/18 Range/Units 15:58 05:04 05:04 WBC 15.46 H (4.0-11.0) K/uL RBC 3.70 L (4.30-5.90) M/uL Hgb 12.2 (12.0-16.0) g/dL Hct 35.5 L (36.0-46.0) % MCV 95.9 (80.0-98.0) fL MCH 33.0 H (27.0-32.0) pg MCHC 34.4 (31.0-37.0) g/dL RDW Std Deviation 46.9 (28.0-62.0) fl RDW Coeff of Scarlet 13 (11.0-15.0) % Plt Count 277 (150-400) K/uL MPV 10.90 (7.40-12.00) fL Neut % (Auto) 70.4 (48.0-80.0) % Lymph % (Auto) 18.6 (16.0-40.0) % [place] % (Auto) 10.5 (0.0-15.0) % Eos % (Auto) 0.2 (0.0-7.0) % Baso % (Auto) 0.3 (0.0-1.5) % Neut # (Auto) 10.9 H (1.4-5.7) K/uL Lymph # (Auto) 2.9 H (0.6-2.4) K/uL [place] # (Auto) 1.6 H (0.0-0.8) K/uL Eos # (Auto) 0.0 (0.0-0.7) K/uL Baso # (Auto) 0.0 (0.0-0.1) K/uL Nucleated RBC % 0.0 /100WBC Nucleated RBCs # 0 K/uL Lactate (0.20-2.00) mmol/L Sodium 136 (136-145) mmol/L Potassium 3.3 L (3.5-5.1) mmol/L Chloride 102 (98-107) mmol/L Carbon Dioxide 25.0 (21.0-32.0) mmol/L BUN 5 L (7.0-18.0) mg/dL Creatinine 0.6 (0.6-1.0) mg/dL Est Cr Clr Drug Dosing 124.75 mL/min Estimated GFR (MDRD) > 60.0 ml/min Glucose 92 (74-106) mg/dL Calcium 8.1 L (8.5-10.1) mg/dL Total Bilirubin (0.2-1.0) mg/dL AST (15-37) IU/L ALT (14-63) IU/L Alkaline Phosphatase (46-116) U/L Total Protein (6.4-8.2) g/dL Albumin (3.4-5.0) g/dL Globulin (2.0-3.5) g/dL Albumin/Globulin Ratio (1.3-2.8) HCG, Qual NEGATIVE (NEG) Monoscreen NEGATIVE (NEG) Result Diagrams: 01/18/18 07:45 01/18/18 07:45 Bigg Results Last 24 hrs: Microbiology 01/17/18 05:09 Anaerobic Blood Culture - Final Blood - Venous - Lab Draw 01/16/18 15:55 Group A Streptococcus Rapid Screen - Final Throat NEGATIVE STREP A SCREEN Imaging Impressions Last 24 hrs: Trust CT of the neck reviewed by me. Probable left peritonsillar collection surrounding ring enhancement. Consult PN Assessment/Plan (1) Peritonsillar cellulitis SNOMED Code(s): 116218396 Code(s): J36 - PERITONSILLAR ABSCESS Current Visit: Yes Problem List Initiated/Reviewed/Updated: Yes My Orders Last 24 Hours: My Active Orders 01/17/18 13:00 Acetaminophen [Tylenol] 650 mg PO Q4H 01/17/18 Lunch Soft Diet [DIET] Plan: Sore throat with left peritonsillar collection. Findings were discussed with the patient. She was consented for aspiration/incision drainage of the left peritonsillar collection - Please see procedure note separately - Lack of any ari purulent material on aspiration or incision drainage can be explained by- either this being a phlegmon or a deeper collection(no obvious peritonsillar bulge) or improvement with IV antibiotics. - To continue IV antibiotics and the analgesia. Encourage oral diet. - If patient does not report any improvement in her symptoms in the next 24 hours will consider exploration under general anesthesia. -
--- NOTE | 2018-01-17 14:01 | PCM.PRNOTE ---
- Free Text/Narrative Note: Informed consent was obtained. Timeout was performed. Left pharynx was sprayed with hurricane spray. An 18-gauge needle was used to aspirate the area of likely collection as assessed by CT scan since no clinical peritonsillar bulge was seen. No purulence was obtained. However considering that the patient was still symptomatic a formal incision and drainage was performed. 1% lidocaine 1: 100,000 epinephrine was injected in the left peritonsillar area and 1.5 mils was used. Stab incision with a guarded 11 blade was made at the junction of L anterior tonsillar pillar and base of uvula and was further dilated with a clamp in all directions around the left tonsil. No purulent material was obtained. Hemostasis was ensured with the dilute peroxide gargles
[2018-01-17] MEDS: cefTRIAXone 1 GM in Premix Bag 1 BAG IV SCH (15:21)
[2018-01-17] MEDS ORDERED: cefTRIAXone 1 GM in Sodium Chloride 0.9% 50 ML IV SCH (16:00)
[2018-01-17] MEDS: Ibuprofen 400 MG Tab PO SCH (20:21)
[2018-01-18] MEDS: Acetaminophen 325 MG Tab PO SCH ×5 (00:39→16:02)
[2018-01-18] MEDS: Clindamycin Phosphate in D5W 300 MG in Premix Bag 1 BAG IV SCH ×8 (00:39→18:01)
[2018-01-18] MEDS: Sodium Chloride 0.9% 1,000 ML IV SCH ×2 (03:29→10:29)
[2018-01-18] MEDS: Ibuprofen 400 MG Tab PO SCH ×2 (04:31→12:00)
[2018-01-18 08:26] LABS: CHLORIDE,CL 106 mmol/L (98-107); SODIUM,NA 139 mmol/L (136-145)
[2018-01-18] MEDS: cefTRIAXone 1 GM in Premix Bag 1 BAG IV SCH (16:02)
--- NOTE | 2018-01-18 16:28 | PCM.CONSN ---
- General Info Date of Service: 01/18/18 Subjective Update: Since the procedure - patient has been tolerating PO diet; pain well controlled with PO tylenol and motrin - Review of Systems HEENT: Reports: Sore Throat - Patient Data Vitals - Most Recent: Last Vital Signs Temp 36.4 C 01/18/18 16:00 Pulse 86 01/18/18 16:00 Resp 16 01/18/18 16:00 BP 117/75 01/18/18 16:00 Pulse Ox 97 01/18/18 16:00 Weight - Most Recent: 84.2 kg I&O - Last 24 Hours: Intake & Output 01/18/18 01/18/18 01/18/18 06:59 14:59 22:59 Intake Total 2419 3021 250 Output Total 250 1550 1000 Balance 2169 1471 -750 Lab Results Last 24 Hours: Laboratory Results - last 24 hr 01/18/18 01/18/18 Range/Units 07:45 07:45 WBC 9.65 (4.0-11.0) K/uL RBC 3.85 L (4.30-5.90) M/uL Hgb 12.5 (12.0-16.0) g/dL Hct 36.9 (36.0-46.0) % MCV 95.8 (80.0-98.0) fL MCH 32.5 H (27.0-32.0) pg MCHC 33.9 (31.0-37.0) g/dL RDW Std Deviation 45.9 (28.0-62.0) fl RDW Coeff of Scarlet 13 (11.0-15.0) % Plt Count 309 (150-400) K/uL MPV 10.90 (7.40-12.00) fL Neut % (Auto) 56.7 (48.0-80.0) % Lymph % (Auto) 30.4 (16.0-40.0) % [place]ble % (Auto) 9.7 (0.0-15.0) % Eos % (Auto) 2.4 (0.0-7.0) % Baso % (Auto) 0.8 (0.0-1.5) % Neut # (Auto) 5.5 (1.4-5.7) K/uL Lymph # (Auto) 2.9 H (0.6-2.4) K/uL Kimble # (Auto) 0.9 H (0.0-0.8) K/uL Eos # (Auto) 0.2 (0.0-0.7) K/uL Baso # (Auto) 0.1 (0.0-0.1) K/uL Nucleated RBC % 0.0 /100WBC Nucleated RBCs # 0 K/uL Sodium 139 (136-145) mmol/L Potassium 3.3 L (3.5-5.1) mmol/L Chloride 106 (98-107) mmol/L Carbon Dioxide 25.8 (21.0-32.0) mmol/L BUN 5 L (7.0-18.0) mg/dL Creatinine 0.6 (0.6-1.0) mg/dL Est Cr Clr Drug Dosing 124.75 mL/min Estimated GFR (MDRD) > 60.0 ml/min Glucose 101 (74-106) mg/dL Calcium 8.2 L (8.5-10.1) mg/dL Bigg Results Last 24 Hours: Microbiology 01/16/18 15:55 Quick Strep Confirmation Culture - Final Throat NO GROUP A STREP ISOLATED Group A Streptococcus Rapid Screen - Final NEGATIVE STREP A SCREEN 01/17/18 05:09 Aerobic Blood Culture - Preliminary Blood - Venous - Lab Draw NO GROWTH AFTER 1 DAY Anaerobic Blood Culture - Final 01/17/18 05:04 Aerobic Blood Culture - Preliminary Blood - Venous NO GROWTH AFTER 1 DAY Anaerobic Blood Culture - Preliminary NO GROWTH AFTER 1 DAY Med Orders - Current: Current Medications Acetaminophen (Tylenol) 650 mg PO Q4H COUNT INCLUDES THE [facility] Last Admin: 01/18/18 16:02 Dose: 650 mg Clindamycin Phosphate 300 mg/ (Premix) 50 mls @ 96.154 mls/hr IV Q6H COUNT INCLUDES THE [facility] Last Admin: 01/18/18 12:00 Dose: 96.154 mls/hr Sodium Chloride (Normal Saline) 1,000 mls @ 150 mls/hr IV ASDIRECTED COUNT INCLUDES THE [facility] Last Admin: 01/18/18 10:29 Dose: 150 mls/hr Ceftriaxone Sodium/Dextrose 1 (gm/ Premix) 50 mls @ 100 mls/hr IV Q24H COUNT INCLUDES THE [facility] Last Admin: 01/18/18 16:02 Dose: 100 mls/hr Ibuprofen (Motrin) 400 mg PO Q8H COUNT INCLUDES THE [facility] Last Admin: 01/18/18 12:00 Dose: 400 mg Ondansetron HCl (Zofran) 4 mg IVPUSH Q4H PRN PRN Reason: Nausea Sodium Chloride (Saline Flush) 10 ml FLUSH ASDIRECTED PRN PRN Reason: Keep Vein Open Sodium Chloride (Saline Flush) 2.5 ml FLUSH ASDIRECTED PRN PRN Reason: Keep Vein Open Discontinued Medications Benzocaine (Hurricaine One 20%) 1 each MUCMEM ONETIME ONE Stop: 01/17/18 08:01 Last Admin: 01/17/18 09:15 Dose: 1 each Clindamycin Phosphate (Cleocin) 900 mg IV ONETIME STA Stop: 01/16/18 19:14 Last Admin: 01/16/18 19:36 Dose: Not Given Ceftriaxone Sodium/Dextrose 2 (gm/ Premix) 50 mls @ 100 mls/hr IV ONETIME ONE Stop: 01/16/18 16:19 Last Admin: 01/16/18 16:04 Dose: 100 mls/hr Sodium Chloride (Normal Saline) 1,000 mls @ 999 mls/hr IV STAT ONE Stop: 01/16/18 16:50 Last Admin: 01/16/18 16:03 Dose: 999 mls/hr Sodium Chloride (Normal Saline) 1,000 mls @ 999 mls/hr IV .Bolus ONE Stop: 01/16/18 20:13 Last Admin: 01/16/18 19:16 Dose: 999 mls/hr Clindamycin Phosphate 900 mg/ (Premix) 50 mls @ 100 mls/hr IV ONETIME ONE Stop: 01/16/18 19:50 Last Admin: 01/16/18 19:26 Dose: 100 mls/hr Clindamycin Phosphate (Cleocin In D5w) Confirm Administered Dose 50 mls @ as directed IV .STK-MED ONE Stop: 01/16/18 19:21 Last Admin: 01/16/18 19:35 Dose: Not Given Ceftriaxone Sodium 1 gm/ (Sodium Chloride) 50 mls @ 100 mls/hr IV Q24H [facility] Acetaminophen 650 mg/ Premix 65 mls @ 400 mls/hr IV NOW ONE Stop: 01/17/18 08:40 Last Admin: 01/17/18 08:48 Dose: 400 mls/hr Iopamidol (Isovue Multipack-370 (76%)) 75 ml IVPUSH ONETIME STA Stop: 01/16/18 17:14 Last Admin: 01/16/18 17:17 Dose: 75 ml Ketorolac Tromethamine (Toradol) 30 mg IVPUSH ONETIME ONE Stop: 01/16/18 16:26 Last Admin: 01/16/18 16:31 Dose: 30 mg Ketorolac Tromethamine (Toradol) 30 mg IVPUSH ONETIME ONE Stop: 01/16/18 22:44 Last Admin: 01/16/18 22:48 Dose: 30 mg Lidocaine/Epinephrine (Xylocaine 1% With Epinephrine 1:100,000) 10 ml INJECT ONETIME ONE Stop: 01/17/18 08:01 Last Admin: 01/17/18 09:15 Dose: 10 ml Lidocaine/Epinephrine (Xylocaine 1% With Epinephrine 1:100,000) Confirm Administered Dose 20 ml .ROUTE .STK-MED ONE Stop: 01/17/18 06:46 Last Admin: 01/17/18 10:53 Dose: Not Given Morphine Sulfate (Morphine) 2 mg IVPUSH Q3H PRN PRN Reason: Pain (severe 7-10) Stop: 01/17/18 20:13 Last Admin: 01/17/18 10:45 Dose: 2 mg Comments:: minimal trismus present minimal L peritonsillar hyperemia and congeston - likely from drainage yesterday ; L tonsil larger than right Demian reactive cervical LNs L IS TENDER - improved since yesterday; normal ROM Consult PN Assessment/Plan POD#: 1 Procedures: Procedures EMERGENCY DEPT VISIT (01/15/18) THER/PROPH/DIAG INJ SC/IM (01/15/18) (1) Peritonsillar cellulitis SNOMED Code(s): 795492085 Code(s): J36 - PERITONSILLAR ABSCESS Current Visit: Yes Problem List Initiated/Reviewed/Updated: Yes My Orders Last 24 Hours: My Active Orders 01/17/18 18:35 Transfer Patient (Change bed) [ADT] Routine 01/17/18 21:00 Ibuprofen [Motrin] 400 mg PO Q8H Plan: - Can be discharged after 48 hours iv antibiotics - To continue PO antibiotics for 10 days - PO analgesia - Follow up with me in 1 week - Continue PO intake
--- NOTE | 2018-01-18 22:37 | PCM.DCSUM1 ---
Discharge Summary - Discharge Data Discharge Disposition: Home, Self-Care 01 Condition: Stable - Patient Summary/Data Consults: Consultations 01/16/18 19:36 Consult to Physician [CONS] Stat - Discharge Plan Prescriptions/Med Rec: Clindamycin HCl 300 mg PO Q6H 12 Days #48 capsule Home Medications: Home Meds Clindamycin HCl 300 mg PO Q6H 12 Days #48 capsule 01/18/18 [Rx] Patient Handouts: Incision and Drainage, Care After, Peritonsillar Abscess, Pharyngitis, [id number] Forms: ED Department Discharge Referrals: PCP,None [Primary Care Provider] - - Patient Data Vitals - Most Recent: Last Vital Signs Temp 36.4 C 01/18/18 16:00 Pulse 86 01/18/18 16:00 Resp 16 01/18/18 16:00 BP 117/75 01/18/18 16:00 Pulse Ox 97 01/18/18 16:00 Weight - Most Recent: 84.2 kg I&O - Last 24 hours: Intake & Output 01/18/18 01/18/18 01/18/18 06:59 14:59 22:59 Intake Total 2419 3021 1290 Output Total 250 1550 1200 Balance 2169 1471 90 Lab Results - Last 24 hrs: Laboratory Results - last 24 hr 01/18/18 01/18/18 Range/Units 07:45 07:45 WBC 9.65 (4.0-11.0) K/uL RBC 3.85 L (4.30-5.90) M/uL Hgb 12.5 (12.0-16.0) g/dL Hct 36.9 (36.0-46.0) % MCV 95.8 (80.0-98.0) fL MCH 32.5 H (27.0-32.0) pg MCHC 33.9 (31.0-37.0) g/dL RDW Std Deviation 45.9 (28.0-62.0) fl RDW Coeff of Scarlet 13 (11.0-15.0) % Plt Count 309 (150-400) K/uL MPV 10.90 (7.40-12.00) fL Neut % (Auto) 56.7 (48.0-80.0) % Lymph % (Auto) 30.4 (16.0-40.0) % [place] % (Auto) 9.7 (0.0-15.0) % Eos % (Auto) 2.4 (0.0-7.0) % Baso % (Auto) 0.8 (0.0-1.5) % Neut # (Auto) 5.5 (1.4-5.7) K/uL Lymph # (Auto) 2.9 H (0.6-2.4) K/uL [place] # (Auto) 0.9 H (0.0-0.8) K/uL Eos # (Auto) 0.2 (0.0-0.7) K/uL Baso # (Auto) 0.1 (0.0-0.1) K/uL Nucleated RBC % 0.0 /100WBC Nucleated RBCs # 0 K/uL Sodium 139 (136-145) mmol/L Potassium 3.3 L (3.5-5.1) mmol/L Chloride 106 (98-107) mmol/L Carbon Dioxide 25.8 (21.0-32.0) mmol/L BUN 5 L (7.0-18.0) mg/dL Creatinine 0.6 (0.6-1.0) mg/dL Est Cr Clr Drug Dosing 124.75 mL/min Estimated GFR (MDRD) > 60.0 ml/min Glucose 101 (74-106) mg/dL Calcium 8.2 L (8.5-10.1) mg/dL RADHA Results - Last 24 hrs: Microbiology 01/16/18 15:55 Quick Strep Confirmation Culture - Final Throat NO GROUP A STREP ISOLATED Group A Streptococcus Rapid Screen - Final NEGATIVE STREP A SCREEN 01/17/18 05:09 Aerobic Blood Culture - Preliminary Blood - Venous - Lab Draw NO GROWTH AFTER 1 DAY Anaerobic Blood Culture - Final 01/17/18 05:04 Aerobic Blood Culture - Preliminary Blood - Venous NO GROWTH AFTER 1 DAY Anaerobic Blood Culture - Preliminary NO GROWTH AFTER 1 DAY Med Orders - Current: Current Medications Discontinued Medications Acetaminophen (Tylenol) 650 mg PO Q4H [facility] Last Admin: 01/18/18 16:02 Dose: 650 mg Benzocaine (Hurricaine One 20%) 1 each MUCMEM ONETIME ONE Stop: 01/17/18 08:01 Last Admin: 01/17/18 09:15 Dose: 1 each Clindamycin Phosphate (Cleocin) 900 mg IV ONETIME STA Stop: 01/16/18 19:14 Last Admin: 01/16/18 19:36 Dose: Not Given Ceftriaxone Sodium/Dextrose 2 (gm/ Premix) 50 mls @ 100 mls/hr IV ONETIME ONE Stop: 01/16/18 16:19 Last Admin: 01/16/18 16:04 Dose: 100 mls/hr Sodium Chloride (Normal Saline) 1,000 mls @ 999 mls/hr IV STAT ONE Stop: 01/16/18 16:50 Last Admin: 01/16/18 16:03 Dose: 999 mls/hr Sodium Chloride (Normal Saline) 1,000 mls @ 999 mls/hr IV .Bolus ONE Stop: 01/16/18 20:13 Last Admin: 01/16/18 19:16 Dose: 999 mls/hr Clindamycin Phosphate 900 mg/ (Premix) 50 mls @ 100 mls/hr IV ONETIME ONE Stop: 01/16/18 19:50 Last Admin: 01/16/18 19:26 Dose: 100 mls/hr Clindamycin Phosphate (Cleocin In D5w) Confirm Administered Dose 50 mls @ as directed IV .STK-MED ONE Stop: 01/16/18 19:21 Last Admin: 01/16/18 19:35 Dose: Not Given Ceftriaxone Sodium 1 gm/ (Sodium Chloride) 50 mls @ 100 mls/hr IV Q24H [facility] Clindamycin Phosphate 300 mg/ (Premix) 50 mls @ 96.154 mls/hr IV Q6H [facility] Last Admin: 01/18/18 18:01 Dose: 96.154 mls/hr Sodium Chloride (Normal Saline) 1,000 mls @ 150 mls/hr IV ASDIRECTED [facility] Last Infusion: 01/18/18 17:00 Dose: 15 mls/hr Acetaminophen 650 mg/ Premix 65 mls @ 400 mls/hr IV NOW ONE Stop: 01/17/18 08:40 Last Admin: 01/17/18 08:48 Dose: 400 mls/hr Ceftriaxone Sodium/Dextrose 1 (gm/ Premix) 50 mls @ 100 mls/hr IV Q24H [facility] Last Admin: 01/18/18 16:02 Dose: 100 mls/hr Ibuprofen (Motrin) 400 mg PO Q8H [facility] Last Admin: 01/18/18 12:00 Dose: 400 mg Iopamidol (Isovue Multipack-370 (76%)) 75 ml IVPUSH ONETIME STA Stop: 01/16/18 17:14 Last Admin: 01/16/18 17:17 Dose: 75 ml Ketorolac Tromethamine (Toradol) 30 mg IVPUSH ONETIME ONE Stop: 01/16/18 16:26 Last Admin: 01/16/18 16:31 Dose: 30 mg Ketorolac Tromethamine (Toradol) 30 mg IVPUSH ONETIME ONE Stop: 01/16/18 22:44 Last Admin: 01/16/18 22:48 Dose: 30 mg Lidocaine/Epinephrine (Xylocaine 1% With Epinephrine 1:100,000) 10 ml INJECT ONETIME ONE Stop: 01/17/18 08:01 Last Admin: 01/17/18 09:15 Dose: 10 ml Lidocaine/Epinephrine (Xylocaine 1% With Epinephrine 1:100,000) Confirm Administered Dose 20 ml .ROUTE .STK-MED ONE Stop: 01/17/18 06:46 Last Admin: 01/17/18 10:53 Dose: Not Given Morphine Sulfate (Morphine) 2 mg IVPUSH Q3H PRN PRN Reason: Pain (severe 7-10) Stop: 01/17/18 20:13 Last Admin: 01/17/18 10:45 Dose: 2 mg Ondansetron HCl (Zofran) 4 mg IVPUSH Q4H PRN PRN Reason: Nausea Sodium Chloride (Saline Flush) 10 ml FLUSH ASDIRECTED PRN PRN Reason: Keep Vein Open Sodium Chloride (Saline Flush) 2.5 ml FLUSH ASDIRECTED PRN PRN Reason: Keep Vein Open
== END 2018-01-18 18:50 | disposition home or self-care (01) | DRG 134 ==
LOC: MW.ED 15:29 → MW.ICU 19:34
PROVIDERS: ADMIT Internal Medicine; ATTEND Internal Medicine
PROC: 0C9P0ZZ Drainage of Tonsils, Open Approach (ICD-10-PCS; principal; 2018-01-17)
DX: J36 Peritonsillar abscess (principal)
CPT/HCPCS: 36415; 70491; 70491-26; 80048; 80053; 83605; 84703; 85025; 86308; 87040; 87081; 87799; 87880-QW; 96361; 96365; 96375; 99285-25; A9270-GY; J0696; J1885; J2270; J7040; Q9967

== ENCOUNTER 2019-10-26 10:33 | Emergency (ER) | payer MEDICAID, OTHER ==
[2019-10-26] MEDS ORDERED: Lidocaine 2% Viscous Solution 15 ML Cup PO ONE (10:38)
[2019-10-26] MEDS ORDERED: Benzocaine 20% Topical Spray UD MUCMEM ONE (10:38)
--- NOTE | 2019-10-26 10:53 | EDM.PDOC ---
ED HPI GENERAL MEDICAL PROBLEM - General Chief Complaint: General Stated Complaint: PT CLAIMS TOOTH ACHE ON R SIDE Time Seen by Provider: 10/26/19 10:37 Source of Information: Reports: Patient History Limitations: Reports: No Limitations - History of Present Illness INITIAL COMMENTS - FREE TEXT/NARRATIVE: 19-year-old female with no past medical history presents with acute onset right lower jaw pain 45 minutes prior to arrival. Pain is severe, sharp constant constant, nonradiating, with no alleviating or exacerbating factors. Pain is localized at her chronic fractured tooth, she has not seen a dentist for it. ROS: A 10-point review of systems, other than pertinent positives and negatives as stated per HPI, is otherwise negative PHYSICAL EXAM General: AOx4, GCS = 15, tearful, moderate distress HEENT: dry mucous membrane, cavity on tooth #30 with no periapical swelling. Neck: supple, no meningismus, no Kernig or Brudzinski Cardiac: S1S2 RRR Respiratory: CTAB, no crackles or rales, no wheezing Abdomen: Soft, nontender, no rebound or guarding, nondistended, no pulsatile mass. Back: nontender Musculoskeletal: NVI distally, no deformity Neuro: No focal deficits ED COURSE 1051: After dental ball treatments, her pain improved and she is stable for discharge. I performed a repeat examination and the patient has not demonstrated any new abnormal findings. Patient exhibits normal vital signs and has exhibited a normal gait. I advised the patient to return to the ER for reevaluation if symptoms worsened, and to follow up with dentist as soon as possible. MEDICAL DECISION MAKING: I reviewed the patients past medical records, lab and radiographic findings. I discussed the case with family members. My differential diagnosis included: Dental cavity, dental abscess, no signs of ANUG. - Related Data Allergies Allergy/AdvReac Type Severity Reaction Status Date / Time No Known Allergies Allergy Verified 10/26/19 10:41 Home Meds: Home Meds Naproxen [Naprosyn] 500 mg PO Q12HR #20 tab 10/26/19 [Rx] Penicillin V Potassium [Veetids] 500 mg PO Q6H 10 Days #40 tab 10/26/19 [Rx] Past Medical History - Past Health History Medical/Surgical History: Denies Medical/Surgical History Social & Family History - Family History Family Medical History: Noncontributory - Caffeine Use Caffeine Use: Reports: None ED ROS GENERAL - Review of Systems Review Of Systems: Comprehensive ROS is negative, except as noted in HPI. (see dictation) ED EXAM, GENERAL - Physical Exam Exam: See Below (see dictation) Course - Orders/Labs/Meds Orders: Active Orders 24 hr Category Date Time Status Benzocaine [Hurricaine One 20%] Med 10/26/19 10:38 Once 2 each MUCMEM ONETIME ONE Lidocaine 2% [Xylocaine 2% Viscous] Med 10/26/19 10:38 Once 15 ml PO ONETIME ONE Departure - Departure Time of Disposition: 10:54 Disposition: Home, Self-Care 01 Condition: Good Clinical Impression: Tooth ache - Discharge Information *PRESCRIPTION DRUG MONITORING PROGRAM REVIEWED*: No *COPY OF PRESCRIPTION DRUG MONITORING REPORT IN PATIENT KENNA: No Prescriptions: Naproxen [Naprosyn] 500 mg PO Q12HR #20 tab Penicillin V Potassium [Veetids] 500 mg PO Q6H 10 Days #40 tab Referrals: PCP,None [Primary Care Provider] - Additional Instructions: The following information is given to patients seen in the emergency department who are being discharged to home. This information is to outline your options for follow-up care. We provide all patients seen in our emergency department with a follow-up referral. The need for follow-up, as well as the timing and circumstances, are variable depending upon the specifics of your emergency department visit. If you don't have a primary care physician on staff, we will provide you with a referral. We always advise you to contact your personal physician following an emergency department visit to inform them of the circumstance of the visit and for follow-up with them and/or the need for any referrals to a consulting specialist. The emergency department will also refer you to a specialist when appropriate. This referral assures that you have the opportunity for follow-up care with a specialist. All of these measure are taken in an effort to provide you with optimal care, which includes your follow-up. Under all circumstances we always encourage you to contact your private physician who remains a resource for coordinating your care. When calling for follow-up care, please make the office aware that this follow-up is from your recent emergency room visit. If for any reason you are refused follow-up, please contact the [facility] Emergency Department at and asked to speak to the emergency department charge nurse. - My Orders Last 24 Hours: My Active Orders 10/26/19 10:38 Benzocaine [Hurricaine One 20%] 2 each MUCMEM ONETIME ONE Lidocaine 2% [Xylocaine 2% Viscous] 15 ml PO ONETIME ONE - Assessment/Plan Last 24 Hours: My Active Orders 10/26/19 10:38 Benzocaine [Hurricaine One 20%] 2 each MUCMEM ONETIME ONE Lidocaine 2% [Xylocaine 2% Viscous] 15 ml PO ONETIME ONE
== END 2019-10-26 11:23 | disposition home or self-care (01) ==
LOC: MW.ED 10:33
DX: K02.9 Dental caries, unspecified (principal)
CPT/HCPCS: 99283; A9270; 99282

== ENCOUNTER 2020-02-27 12:46 | Emergency (ER) | payer SELFPAY ==
--- NOTE | 2020-02-27 13:25 | EDM.PDOC ---
ED HPI GENERAL MEDICAL PROBLEM - General Chief Complaint: ENT Problem Stated Complaint: RIGHT EAR PAIN Time Seen by Provider: 02/27/20 12:54 Source of Information: Reports: Patient History Limitations: Reports: No Limitations - History of Present Illness INITIAL COMMENTS - FREE TEXT/NARRATIVE: HISTORY AND PHYSICAL: History of present illness: Patient is a 19-year-old female who presents to the ED today with concern of 2 earring backs that are stuck in her right earlobe. Patient states they have been stuck in her earlobe for many years. Patient states that she is to have h er right ear gauged and this was how the back of the earrings got stuck in her ear when she decided to take the gauges out and healed over them. Patient states that they did not bother her for many years but over the past week they have become more bothersome to her. Patient states she continues to touch the area and notices that this makes it more painful and bothersome to the touch. Patient denies any other symptoms or concerns. Patient denies fever, chills, chest pain, shortness of breath, or cough. Denies headache, neck stiff ness, change in vision, syncope, or near syncope. Denies nausea, vomiting, abdominal pain, diarrhea, constipation, or dysuria. Has not noted any blood in urine or stool. Patient has been eating and drinking appropriately. Review of systems: As per history of present illness and below otherwise all systems reviewed and negative. Past medical history: As per history of present illness and as reviewed below otherwise noncontributory. Surgical history: As per history of present illness and as reviewed below otherwise noncontributory. Social history: See social history for further information Family history: As per history of present illness and as reviewed below otherwise noncontributory. Physical exam: General: Patient is alert, oriented, and in no acute distress. Patient sitting comfortably on exam table. HEENT: The right ear lobe does have 2 foreign body on palpation; 1 interior to the piercing and 1 superior to the area of piercing. Mild edema and mild erythema but no drainage. Otherwise, Atraumatic, normocephalic, pupils equal and reactive bilaterally, negative for conjunctival pallor or scleral icterus, mucous membranes moist, TMs normal bilaterally, throat clear, neck supple, nontender, trachea midline. No drooling or trismus noted. No meningeal signs. No hot potato voice noted. Lungs: Clear to auscultation, breath sounds equal bilaterally, chest nontender. Heart: S1S2, regular rate and rhythm without overt murmur Abdomen: Soft, nondistended, nontender. Negative for masses or hepatosplenomegaly. Negative for costovertebral tenderness. Pelvis: Stable nontender. Genitourinary: Deferred. Rectal: Deferred. Skin: Intact, warm, dry. No lesions or rashes noted. Extremities: Atraumatic, negative for cords or calf pain. Neurovascular unremarkable. Neuro: Awake, alert, oriented. Cranial nerves II through XII unremarkable. C erebellum unremarkable. Motor and sensory unremarkable throughout. Exam nonfocal. Notes: I did call Dr. Lu, general surgery, and thoroughly discussed patients case. Dr. Lu states he will see patient in his clinic tomorrow. Discussed the importance for follow up with Dr. Iraheta Voices understanding and is agreeable to plan of care. Denies any further questions or concerns at this time. Diagnostics: None Therapeutics: None Prescription: None Impression: Retained foreign body, right ear lobe Plan: 1. You can alternate ibuprofen and Tylenol as directed for pain and discomfort. 2. Do not touch or manipulate the area as discussed. 3. Follow up with Dr. Lu tomorrow in the clinic tomorrow as discussed. Return to the ED as needed and as discussed. Definitive disposition and diagnosis as appropriate pending reevaluation and review of above. rigth ear lobe Pain Score (Numeric/FACES): 7 - Related Data Allergies Allergy/AdvReac Type Severity Reaction Status Date / Time No Known Allergies Allergy Verified 02/27/20 13:00 Home Meds: Home Meds . 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 Musculoskeletal History: Reports: None Neurological History: Reports: None Psychiatric History: Reports: None Endocrine/Metabolic History: Reports: None Hematologic History: Reports: None Immunologic History: Reports: None Oncologic (Cancer) History: Reports: None Dermatologic History: Reports: None - Infectious Disease History Infectious Disease History: Reports: None - Past Surgical History Head Surgeries/Procedures: Reports: None HEENT Surgical History: Reports: None Cardiovascular Surgical History: Reports: None Respiratory Surgical History: Reports: None GI Surgical History: Reports: None Female Surgical History: Reports: None Endocrine Surgical History: Reports: None Neurological Surgical History: Reports: None Musculoskeletal Surgical History: Reports: None Dermatological Surgical History: Reports: None Social & Family History - Family History Family Medical History: Noncontributory - Tobacco Use Smoking Status *Q: Never Smoker Second Hand Smoke Exposure: No - Caffeine Use Caffeine Use: Reports: None - Recreational Drug Use Recreational Drug Use: No ED ROS GENERAL - Review of Systems Review Of Systems: Comprehensive ROS is negative, except as noted in HPI. ED EXAM, GENERAL - Physical Exam Exam: See Below (see dictation) Course - Vital Signs Last Recorded V/S: Last Vital Signs Temp 97.2 F 02/27/20 13:00 Pulse 77 02/27/20 13:00 Resp 18 02/27/20 13:00 BP 127/87 02/27/20 13:00 Pulse Ox 99 02/27/20 13:00 Departure - Departure Time of Disposition: 13:20 Disposition: Home, Self-Care 01 Clinical Impression: Retained foreign body - Discharge Information Referrals: PCP,None [Primary Care Provider] - Additional Instructions: The following information is given to patients seen in the emergency department who are being discharged to home. This information is to outline your options for follow-up care. We provide all patients seen in our emergency department with a follow-up referral. The need for follow-up, as well as the timing and circumstances, are variable depending upon the specifics of your emergency department visit. If you don't have a primary care physician on staff, we will provide you with a referral. We always advise you to contact your personal physician following an emergency department visit to inform them of the circumstance of the visit and for follow-up with them and/or the need for any referrals to a consulting specialist. The emergency department will also refer you to a specialist when appropriate. This referral assures that you have the opportunity for follow-up care with a specialist. All of these measure are taken in an effort to provide you with optimal care, which includes your follow-up. Under all circumstances we always encourage you to contact your private physician who remains a resource for coordinating your care. When calling for follow-up care, please make the office aware that this follow-up is from your recent emergency room visit. If for any reason you are refused follow-up, please contact the [facility] Emergency Department at and asked to speak to the emergency department charge nurse. [facility] Primary Care [address] [place] [address] [facility] [address] [place] [id number] [facility] - General Surgery, Dr. Lu Professional Building [address] [place] [address], [address] [place] [address] 1. You can alternate ibuprofen and Tylenol as directed for pain and discomfort. 2. Do not touch or manipulate the area as discussed. 3. Follow up with Dr. Lu tomorrow in the clinic tomorrow as discussed. Return to the ED as needed and as discussed. Sepsis Event Note (ED) - Evaluation Sepsis Screening Result: No Definite Risk - Focused Exam Vital Signs: Vital Signs Temp Pulse Resp BP Pulse Ox 02/27/20 13:00 97.2 F 77 18 127/87 99
== END 2020-02-27 13:40 | disposition home or self-care (01) ==
LOC: MW.ED 12:46
DX: T16.1XXA Foreign body in right ear, initial encounter (principal)
CPT/HCPCS: 99282

== ENCOUNTER 2020-06-26 23:41 | Emergency (ER) | payer SELFPAY ==
[2020-06-27] MEDS ORDERED: Acetaminophen 500 MG Tab PO ONE (00:20)
[2020-06-27] MEDS ORDERED: Ibuprofen 400 MG Tab PO ONE (00:20)
--- NOTE | 2020-06-27 00:22 | EDM.PDOC ---
ED HPI GENERAL MEDICAL PROBLEM - General Chief Complaint: Lower Extremity Injury/Pain Stated Complaint: LEFT TOE PAIN Time Seen by Provider: 06/26/20 23:43 Source of Information: Reports: Patient, Old Records History Limitations: Reports: No Limitations - History of Present Illness INITIAL COMMENTS - FREE TEXT/NARRATIVE: This is a very pleasant 20-year-old female with no past medical history presenting with pain to her right great toe. She reports a 1 day history of redness and pain and tenderness to the nail fold of the right great toe. No history of any preceding trauma. No history of gout. Denies fever, chills, purulent drainage, or any known wounds. Intermittently taking ibuprofen at home without much relief. No other complaints. Past medical history: Reviewed, no additional pertinent history. Surgical history: Reviewed in system, no additional pertinent history. Social history: Reviewed in system, no additional pertinent history. Family history: Reviewed in system, no additional pertinent history. PHYSICAL EXAM Vital signs reviewed. Nursing notes reviewed. Constitutional: Awake, alert, non-distressed. Head: Normocephalic, atraumatic. Eyes: EOMI, conjunctiva normal, no discharge, no scleral icterus. Ears, Nose, Throat: External ears and nose normal, moist oral mucosa. Cardiovascular: 2+ right DP pulse, capillary refill less than 2 seconds. Pulmonary: normal work of breathing, no accessory muscle use. Abdomen/GI: Soft, nontender, nondistended, no guarding or rigidity, no masses. Musculoskeletal: No deformities. No redness or swelling of the right MTP to suggest gout. Integumentary: Appropriate color for ethnicity, warm, dry, no pallor or jaundice, no rash. There is some erythema and induration and tenderness just proximal to the nail fold of the left great toe, concerning for mild cellulitis. There is no evidence of a paronychia or felon. Neurologic: Alert, answering questions appropriately, normal speech, no facial droop, moving all extremities well. Psychiatric: Appropriate mood and affect, normal thought process. This patient was seen and evaluated during the 2019 SARS-CoV-2 novel coronavirus pandemic period. Community viral transmission is ongoing at time of this encounter and the emergency department is operating under pandemic response procedures. Left Toe-Hailux Pain Score (Numeric/FACES): 10 - Related Data Allergies Allergy/AdvReac Type Severity Reaction Status Date / Time No Known Allergies Allergy Verified 06/26/20 23:46 Home Meds: Home Meds . 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 Musculoskeletal History: Reports: None Neurological History: Reports: None Psychiatric History: Reports: None Endocrine/Metabolic History: Reports: None Hematologic History: Reports: None Immunologic History: Reports: None Oncologic (Cancer) History: Reports: None Dermatologic History: Reports: None - Infectious Disease History Infectious Disease History: Reports: None - Past Surgical History Head Surgeries/Procedures: Reports: None HEENT Surgical History: Reports: None Cardiovascular Surgical History: Reports: None Respiratory Surgical History: Reports: None GI Surgical History: Reports: None Female Surgical History: Reports: None Endocrine Surgical History: Reports: None Neurological Surgical History: Reports: None Musculoskeletal Surgical History: Reports: None Dermatological Surgical History: Reports: None Social & Family History - Family History Family Medical History: No Pertinent Family History - Tobacco Use Tobacco Use Status *Q: Never Tobacco User - Caffeine Use Caffeine Use: Reports: Coffee - Recreational Drug Use Recreational Drug Use: No Review of Systems - Review of Systems Review Of Systems: See Below ED EXAM, GENERAL - Physical Exam Exam: See Below Course - Vital Signs Text/Narrative:: 20-year-old female with pain to the left great toe, exam is consistent with mild early cellulitis. She is afebrile and shows no systemic signs of sepsis or toxicity. There is no joint effusion and the left MTP is not swollen or erythematous to suggest gout. There is no joint effusion involving the IP joint of the great toe to suggest septic arthritis. There is no history of trauma. There is no paronychia or felon. Patient will be treated with acetaminophen and ibuprofen and will plan to prescribe a 1 week course of cephalexin. I encouraged the patient to follow-up with a primary care physician in about a week for reevaluation. We also discussed return precautions, she voiced understanding, and had no questions prior to being discharged in good condition. Last Recorded V/S: Last Vital Signs Temp 36.3 C 06/26/20 23:46 Pulse 82 06/26/20 23:46 Resp 16 06/26/20 23:46 BP 118/62 06/26/20 23:46 Pulse Ox 99 06/26/20 23:46 Departure - Departure Time of Disposition: 00:21 Disposition: Home, Self-Care 01 Condition: Good Clinical Impression: Cellulitis of toe of left foot - Discharge Information *PRESCRIPTION DRUG MONITORING PROGRAM REVIEWED*: Not Applicable *COPY OF PRESCRIPTION DRUG MONITORING REPORT IN PATIENT KENNA: Not Applicable Instructions: Cellulitis, Adult Referrals: [facility] - Family Practice [Provider Group] - 1 Week (For reevaluation of toe pain.) Additional Instructions: You were seen in the emergency department for left toe pain. It looks like you may be developing a mild skin infection on the toe. It does not look like he has gout. We are going to treat you with a 1 week course of antibiotics, be sure to finish the entire bottle. I recommend [id number] extra strength acetaminophen (1000 mg every 6 hours) and ibuprofen (400 mg every 6 hours) to help treat your pain. I would like you to follow-up with a family medicine clinic in about a week to ensure that you are doing better. Warning signs to come back to the ER include: Worsening redness or pain, fever, chills, streaking of redness up the foot or leg, or any other new or concerning symptoms Please return the emergency department immediately if your symptoms worsen or if you feel worse. Thank you for choosing the [facility] emergency department in [place] for your medical needs today. It was a pleasure caring for you. The following information is given to patients seen in the emergency department who are being discharged. This information is to outline your options for follow-up care. We provide all patients seen in our emergency department with a follow-up referral. The need for follow-up, as well as the timing and circumstances, are variable depending upon the specifics of your emergency department visit. If you don't have a primary care physician on staff, we will provide you with a referral. We always advise you to contact your personal physician following an emergency department visit to inform them of the circumstance of the visit and for follow-up with them and/or the need for any referrals to a consulting specialist. The emergency department will also refer you to a specialist when appropriate. This referral assures that you have the opportunity for follow-up care with a specialist. All of these measure are taken in an effort to provide you with optimal care, which includes your follow-up. Under all circumstances we always encourage you to contact your private physician who remains a resource for coordinating your care. When calling for follow-up care, please make the office aware that this follow-up is from your re cent emergency room visit. If for any reason you are refused follow-up, please contact the [facility] Emergency Department at and asked to speak to the emergency department charge nurse. If you do not have a primary care physician that is caring for you, you can contact these clinics below to set up an appointment to establish care: [facility] - Primary Care [address] [place] [id number] [facility] [address] [place] [id number] Sepsis Event Note (ED) - Evaluation Sepsis Screening Result: No Definite Risk - Focused Exam Vital Signs: Vital Signs Temp Pulse Resp BP Pulse Ox 06/26/20 23:46 36.3 C 82 16 118/62 99
== END 2020-06-27 00:32 | disposition home or self-care (01) ==
LOC: MW.ED 23:41
DX: L03.032 Cellulitis of left toe (principal)
CPT/HCPCS: 99283; A9270; 99282

== ENCOUNTER 2021-02-03 00:21 | Emergency (ER) | payer SELFPAY | END 2021-02-03 01:31 | disposition left against medical advice (07) | LOC: MW.ED 00:21 | DX: Z53.21 Procedure and treatment not carried out due to patient leaving prior to being seen by health care provider (principal) ==

== ENCOUNTER 2021-08-27 20:04 | Inpatient (IN) | payer MEDICAID ==
[2021-08-27] MEDS ORDERED: Carboprost Tromethamine 250 MCG/1 ML Amp IM PRN (22:32)
[2021-08-27] MEDS ORDERED: Sodium Chloride 0.9% 2.5 ML Syringe FLUSH PRN (22:32)
[2021-08-27] MEDS ORDERED: Water For Irrigation,Sterile 1,000 ML Container IRR PRN (22:32)
[2021-08-27] MEDS ORDERED: Methylergonovine 0.2 MG/1 ML Amp IM PRN (22:32)
[2021-08-27] MEDS ORDERED: Tranexamic Acid 1,000 MG in Sodium Chloride 0.9% 100 ML IV PRN (22:32)
[2021-08-27] MEDS ORDERED: Lidocaine 1% 50 ML MDV INJECT PRN (22:32)
[2021-08-27] MEDS ORDERED: Sodium Chloride 0.9% 20 ML SDV IV PRN (22:32)
[2021-08-27] MEDS ORDERED: Misoprostol 25 MCG (1/4 of 100 MCG) Tab VAG PRN (22:32)
[2021-08-27] MEDS ORDERED: Misoprostol 200 MCG Tab PO PRN (22:32)
[2021-08-27] MEDS ORDERED: Sodium Chloride 0.9% 10 ML Syringe FLUSH PRN (22:32)
[2021-08-27] MEDS ORDERED: Nalbuphine 10 MG/1 ML Vial IVPUSH PRN (22:32)
[2021-08-27] MEDS ORDERED: Terbutaline 1 MG/ML SDV SUBCUT PRN (22:32)
[2021-08-27] MEDS ORDERED: Ampicillin 2 GM in Sodium Chloride 0.9% 100 ML IV ONE (22:37)
[2021-08-27] MEDS ORDERED: Oxytocin/0.9 % Sodium Chloride 30 UNIT/500 ML BAG IV SCH ×2 (22:45)
[2021-08-28] MEDS: Lactated Ringers 1,000 ML IV SCH ×3 (00:38→23:45)
[2021-08-28] MEDS: Ampicillin 1 GM in Sodium Chloride 0.9% 50 ML IV SCH ×6 (03:07→21:42)
[2021-08-28] MEDS: Misoprostol 25 MCG (1/4 of 100 MCG) Tab VAG PRN ×2 (03:42→17:58)
[2021-08-28] MEDS: Misoprostol 25 MCG (1/4 of 100 MCG) Tab PO SCH ×2 (03:43→17:58)
[2021-08-29] MEDS: Ampicillin 1 GM in Sodium Chloride 0.9% 50 ML IV SCH ×5 (03:12→17:08)
[2021-08-29] MEDS: Butorphanol 1 MG/ML SDV IVPUSH PRN ×2 (04:22→07:05)
[2021-08-29] MEDS: Lactated Ringers 1,000 ML IV SCH ×4 (07:03→16:56)
[2021-08-29] MEDS ORDERED: Ropivacaine 100 ML ONE (08:08)
[2021-08-29] MEDS ORDERED: Bupivacaine 0.25% 10 ML SDV ONE (08:10)
[2021-08-29] MEDS ORDERED: ePHEDrine 50 MG/ML SDV ONE (09:26)
[2021-08-29] MEDS ORDERED: ePHEDrine 50 MG/ML SDV IVPUSH PRN ×2 (09:29)
[2021-08-29] MEDS ORDERED: Ropivacaine 200 MG in Premix Bag 1 BAG EPIDUR SCH (09:30)
[2021-08-29] MEDS ORDERED: Ondansetron 4 MG/2 ML SDV IVPUSH PRN (11:06)
[2021-08-29] MEDS ORDERED: Bisacodyl 10 MG Supp RECTAL PRN (17:53)
[2021-08-29] MEDS ORDERED: Docusate Sodium 100 MG Cap PO PRN (17:53)
[2021-08-29] MEDS ORDERED: Lanolin 100% Cream 7 GM Tube TOP PRN (17:53)
[2021-08-29] MEDS ORDERED: Acetaminophen 500 MG Tab PO PRN ×2 (17:53)
[2021-08-29] MEDS ORDERED: Ibuprofen 400 MG Tab PO PRN (17:53)
[2021-08-29] MEDS ORDERED: oxyCODONE 5 MG Tab PO PRN (17:53)
[2021-08-29] MEDS ORDERED: Furosemide 20 MG/2 ML VIAL IVPUSH ONE (19:04)
[2021-08-29] MEDS: Benzocaine/Menthol 20%-0.5% Spray 78 GM Cannister TOP PRN (22:57)
[2021-08-29] MEDS: Witch Hazel Medicated Pads 40/Jar TOP PRN (22:57)
[2021-08-29] MEDS: Ibuprofen 800 MG Tab PO PRN (22:59)
[2021-08-30] MEDS: Ibuprofen 800 MG Tab PO PRN (05:53)
[2021-08-31] MEDS: Ibuprofen 800 MG Tab PO PRN (04:41)
[2021-08-31] MEDS: Benzocaine/Menthol 20%-0.5% Spray 78 GM Cannister TOP PRN (11:13)
[2021-08-31] MEDS: Witch Hazel Medicated Pads 40/Jar TOP PRN (11:14)
== END 2021-08-31 17:05 | disposition home or self-care (01) | DRG 807 ==
LOC: MW.OBCHECK 20:04 → MW.OB 20:05 → MW.OBCHECK 22:32 → OBSVTOIN 08-29 17:44 → MW.OB 08-29 23:30
PROVIDERS: ADMIT Obstetrics & Gynecology; ATTEND Obstetrics & Gynecology
PROC: 3E0P7VZ Introduction of Hormone into Female Reproductive, Via Natural or Artificial Opening (ICD-10-PCS; principal; 2021-08-29)
PROC: 10E0XZZ Delivery of Products of Conception, External Approach (ICD-10-PCS; 2021-08-29)
PROC: 3E033VJ Introduction of Other Hormone into Peripheral Vein, Percutaneous Approach (ICD-10-PCS; 2021-08-29)
PROC: 3E0R3BZ Introduction of Anesthetic Agent into Spinal Canal, Percutaneous Approach (ICD-10-PCS; 2021-08-29)
PROC: 00HU33Z Insertion of Infusion Device into Spinal Canal, Percutaneous Approach (ICD-10-PCS; 2021-08-29)
DX: O48.0 Post-term pregnancy (principal); Z37.0 Single live birth; Z3A.41 41 weeks gestation of pregnancy; O99.824 Streptococcus B carrier state complicating childbirth; O77.0 Labor and delivery complicated by meconium in amniotic fluid; O69.81X0 Labor and delivery complicated by cord around neck, without compression, not applicable or unspecified; Z20.822 Contact with and (suspected) exposure to COVID-19
CPT/HCPCS: 36415; 51702; 59025; 59409; 84112; 85014; 85018; 85027; 86592; 86850; 86900; 86901; A9270-GY; J0290; J0595; J1940; J2300; J2405; J2590; J2795; J3490; J7120; U0002

== ENCOUNTER 2022-05-01 10:27 | Emergency (ER) | payer MEDICAID ==
[2022-05-01] MEDS ORDERED: Sodium Chloride 0.9% 1,000 ML IV ONE ×2 (10:51→10:56)
[2022-05-01] MEDS ORDERED: Ondansetron 4 MG/2 ML SDV IVPUSH ONE (10:51)
[2022-05-01] MEDS ORDERED: diphenhydrAMINE 50 MG/ML SDV IVPUSH ONE (10:52)
[2022-05-01] MEDS ORDERED: Metoclopramide 10 MG/2 ML SDV IV ONE (10:56)
[2022-05-01 11:44] LABS: CARBON DIOXIDE,CO2 22.6 mmol/L (21.0-32.0); POTASSIUM,K 3.8 mmol/L (3.5-5.1)
[2022-05-01 12:01] LABS: CORONAVIRUS COVID-19 NAA POSITIVE (NEGATIVE); INFLUENZA A NAA NEGATIVE (NEGATIVE); INFLUENZA B NAA NEGATIVE (NEGATIVE)
== END 2022-05-01 12:59 | disposition home or self-care (01) ==
LOC: MW.ED 10:27
DX: O98.511 Other viral diseases complicating pregnancy, first trimester (principal); U07.1 COVID-19; Z3A.09 9 weeks gestation of pregnancy
CPT/HCPCS: 0240U; 36415; 80053; 81003; 85025; 85652; 96361; 96374; 96375; 99284; J1200; J2405; J2765; J7030; 99283

== ENCOUNTER 2022-12-01 08:18 | Inpatient (IN) | payer MEDICAID ==
[2022-12-01] MEDS ORDERED: Sodium Chloride 0.9% 10 ML Syringe FLUSH PRN (08:34)
[2022-12-01] MEDS ORDERED: Methylergonovine 0.2 MG/1 ML Amp IM PRN (08:34)
[2022-12-01] MEDS ORDERED: Sodium Chloride 0.9% 20 ML SDV IV PRN (08:34)
[2022-12-01] MEDS ORDERED: Carboprost Tromethamine 250 MCG/1 mL Vial IM PRN (08:34)
[2022-12-01] MEDS ORDERED: Sodium Chloride 0.9% 2.5 ML Syringe FLUSH PRN (08:34)
[2022-12-01] MEDS ORDERED: Lidocaine 1% 50 ML MDV INJECT PRN (08:34)
[2022-12-01] MEDS ORDERED: Water For Irrigation,Sterile 1,000 ML Container IRR PRN (08:34)
[2022-12-01] MEDS ORDERED: Tranexamic Acid 1,000 MG in Sodium Chloride 0.9% 100 ML IV PRN (08:34)
[2022-12-01] MEDS ORDERED: Misoprostol 200 MCG Tab PO PRN (08:34)
[2022-12-01] MEDS ORDERED: Butorphanol 1 MG/ML SDV IVPUSH PRN (08:34)
[2022-12-01] MEDS ORDERED: Ampicillin 2 GM in Sodium Chloride 0.9% 100 ML IV ONE (08:36)
[2022-12-01] MEDS ORDERED: Oxytocin/0.9 % Sodium Chloride 30 UNIT/500 ML BAG IV SCH ×2 (08:45→09:00)
[2022-12-01] MEDS: Lactated Ringers 1,000 ML IV SCH ×2 (08:57→16:52)
[2022-12-01] MEDS ORDERED: Terbutaline 1 MG/ML SDV SUBCUT PRN (09:00)
[2022-12-01] MEDS ORDERED: Misoprostol 25 MCG (1/4 of 100 MCG) Tab VAG PRN ×2 (09:00)
[2022-12-01] MEDS ORDERED: Misoprostol 25 MCG (1/4 of 100 MCG) Tab PO ONE (09:05)
[2022-12-01 09:43] LABS: HEMATOCRIT 31.5 % (36.0-46.0); HEMOGLOBIN 10.3 g/dL (12.0-16.0); MEAN CORPUSCULAR HEMOGLOBIN 28.1 pg (27.0-32.0); MEAN CORPUSCULAR HGB CONC 32.7 g/dL (31.0-37.0); MEAN CORPUSCULAR VOLUME 86.1 fL (80.0-98.0); RED BLOOD CELL COUNT 3.66 M/uL (4.30-5.90); WHITE BLOOD CELL COUNT,WBC 10.04 K/uL (4.0-11.0)
[2022-12-01] MEDS ORDERED: Misoprostol 25 MCG (1/4 of 100 MCG) Tab PO PRN (13:00)
[2022-12-01] MEDS: Ampicillin 1 GM in Sodium Chloride 0.9% 50 ML IV SCH ×3 (13:06→20:00)
[2022-12-01] MEDS ORDERED: Bupivacaine 0.5% 10 ML SDV ONE (16:19)
[2022-12-01] MEDS ORDERED: Ropivacaine/PF 400 MG/200 ML PCA ONE (16:19)
[2022-12-01] MEDS ORDERED: ePHEDrine 50 MG/ML SDV IVPUSH PRN ×2 (16:44)
[2022-12-01] MEDS ORDERED: Phenylephrine HCl 0.5 MG/5 ML AMP IVPUSH PRN (16:44)
[2022-12-01] MEDS ORDERED: Ropivacaine HCl/PF 400 MG in Premix Bag 1 BAG EPIDUR SCH (16:45)
[2022-12-01] MEDS ORDERED: oxyCODONE 5 MG Tab PO PRN (21:48)
[2022-12-01] MEDS ORDERED: Benzocaine/Menthol 20%-0.5% Spray 78 GM Cannister TOP PRN (21:48)
[2022-12-01] MEDS ORDERED: Docusate Sodium 100 MG Cap PO PRN (21:48)
[2022-12-01] MEDS ORDERED: Witch Hazel Medicated Pads 40/Jar TOP PRN (21:48)
[2022-12-01] MEDS ORDERED: Acetaminophen 500 MG Tab PO PRN ×2 (21:48)
[2022-12-01] MEDS ORDERED: Ibuprofen 400 MG Tab PO PRN (21:48)
[2022-12-01] MEDS ORDERED: Lanolin 100% Cream 7 GM Tube TOP PRN (21:48)
[2022-12-01] MEDS ORDERED: Bisacodyl 10 MG Supp RECTAL PRN (21:48)
[2022-12-02] MEDS: Ibuprofen 800 MG Tab PO PRN ×2 (04:53→22:19)
[2022-12-02 05:44] LABS: HEMOGLOBIN 9.1 g/dL (12.0-16.0)
[2022-12-03] MEDS: Ibuprofen 800 MG Tab PO PRN (10:22)
== END 2022-12-03 11:54 | disposition home or self-care (01) | DRG 807 ==
LOC: MW.OBCHECK 08:18 → MW.OB 08:22 → OBSVTOIN 22:52 → MW.OBCHECK 23:07 → MW.OB 12-02 02:04
PROVIDERS: ADMIT Obstetrics & Gynecology; ATTEND Obstetrics & Gynecology
PROC: 10E0XZZ Delivery of Products of Conception, External Approach (ICD-10-PCS; principal; 2022-12-02)
PROC: 10907ZC Drainage of Amniotic Fluid, Therapeutic from Products of Conception, Via Natural or Artificial Opening (ICD-10-PCS; 2022-12-02)
PROC: 3E033VJ Introduction of Other Hormone into Peripheral Vein, Percutaneous Approach (ICD-10-PCS; 2022-12-02)
PROC: 3E0P7VZ Introduction of Hormone into Female Reproductive, Via Natural or Artificial Opening (ICD-10-PCS; 2022-12-02)
PROC: 3E0R3BZ Introduction of Anesthetic Agent into Spinal Canal, Percutaneous Approach (ICD-10-PCS; 2022-12-02)
PROC: 00HU33Z Insertion of Infusion Device into Spinal Canal, Percutaneous Approach (ICD-10-PCS; 2022-12-02)
DX: O24.429 Gestational diabetes mellitus in childbirth, unspecified control (principal); Z37.0 Single live birth; Z3A.39 39 weeks gestation of pregnancy
CPT/HCPCS: 36415; 51702; 59025; 59409; 85014; 85018; 85027; 86592; 86850; 86900; 86901; A9270-GY; J0290; J2590; J2795; J3490; J7120

== ENCOUNTER 2023-07-13 11:04 | Emergency (ER) | payer MEDICAID ==
[2023-07-13] MEDS ORDERED: Sodium Chloride 0.9% 10 ML Syringe FLUSH PRN (11:29)
[2023-07-13] MEDS ORDERED: Sodium Chloride 0.9% 2.5 ML Syringe FLUSH PRN (11:29)
[2023-07-13] MEDS ORDERED: Ampicillin/Sulbactam Na 3 GM in Sodium Chloride 0.9% 100 ML IV ONE (11:30)
[2023-07-13] MEDS ORDERED: Sodium Chloride 0.9% 1,000 ML IV ONE (11:31)
[2023-07-13 12:07] LABS: BASOPHILS ABSOLUTE AUTO 0.06 K/uL (0.00-0.20); BASOPHILS PERCENT AUTO 0.3 % (0.0-1.0); EOSINOPHILS ABSOLUTE AUTO 0.02 K/uL (0.00-0.45); EOSINOPHILS PERCENT AUTO 0.1 % (0.0-6.0); HEMATOCRIT 38.8 % (37.0-47.0); HEMOGLOBIN 12.8 g/dL (12.0-16.0); IMMATURE GRAN ABSOLUTE AUTO 0.13 K/uL (0.00-0.05); IMMATURE GRAN PERCENT AUTO 0.7 % (0.0-0.4); LYMPHOCYTES ABSOLUTE AUTO 2.19 K/uL (1.00-4.80); LYMPHOCYTES PERCENT AUTO 11.9 % (24.0-44.0); MEAN CORPUSCULAR HEMOGLOBIN 28.6 pg (28.0-32.0); MEAN CORPUSCULAR VOLUME 86.6 fL (83.0-99.0); MEAN PLATELET VOLUME 10.9 fL (9.4-12.3); MONOCYTES ABSOLUTE AUTO 0.96 K/uL (0.00-0.80); MONOCYTES PERCENT AUTO 5.2 % (0.0-8.0); NEUTROPHILS ABSOLUTE AUTO 15.11 K/uL (1.80-7.70); NEUTROPHILS PERCENT AUTO 81.8 % (41.0-71.0); PLATELET COUNT,PLT 380 K/uL (150-400); RED BLOOD CELL COUNT 4.48 M/uL (4.10-5.30); WHITE BLOOD CELL COUNT,WBC 18.47 K/uL (3.9-11.3)
[2023-07-13 12:31] LABS: CORONAVIRUS COVID-19 NAA POSITIVE (NEGATIVE); INFLUENZA A NAA NEGATIVE (NEGATIVE); INFLUENZA B NAA NEGATIVE (NEGATIVE)
[2023-07-13 12:33] LABS: A/G RATIO 0.7 (0.9-1.6); ALBUMIN 3.6 g/dL (3.4-5.0); BILIRUBIN TOTAL 0.4 mg/dL (0.2-1.0); CALCIUM 9.1 mg/dL (8.5-10.1); CARBON DIOXIDE,CO2 26.2 mmol/L (21.0-32.0); CREATININE 0.7 mg/dL (0.6-1.0); EST CRCL DRUG DOSING (CG) 101.63 mL/min; POTASSIUM,K 3.5 mmol/L (3.5-5.1)
[2023-07-13 12:36] LABS: LACTIC ACID 0.8 mmol/L (0.4-2.0)
[2023-07-13] MEDS ORDERED: Iopamidol 755 MG/ML 500 ML Multipack Bottle IVPUSH STA (16:19)
[2023-07-13] MEDS ORDERED: Benzocaine 20% Topical Spray UD MUCMEM ONE (17:37)
[2023-07-13] MEDS ORDERED: Lidocaine 1% 5 ML VIAL INJECT ONE (17:38)
== END 2023-07-13 19:02 | disposition home or self-care (01) ==
LOC: MW.ED 11:04
DX: U07.1 COVID-19 (principal); J36 Peritonsillar abscess; Z86.16 Personal history of COVID-19
CPT/HCPCS: 0240U; 36415; 70491; 80053; 83605; 84703; 85025; 87040; 87651; 96365; 99283; A9270; J0295; J3490; J7030; Q9967

== ENCOUNTER 2024-06-21 07:54 | Emergency (ER) | payer SELFPAY ==
[2024-06-21] MEDS ORDERED: Sodium Chloride 0.9% 10 ML Syringe FLUSH PRN (08:34)
[2024-06-21] MEDS ORDERED: Dexamethasone 4 MG/ML SDV IVPUSH ONE (08:35)
[2024-06-21] MEDS: Ketorolac 30 MG/ML SDV IVPUSH ONE (08:42)
[2024-06-21] MEDS: Ampicillin/Sulbactam Na 3 GM in Sodium Chloride 0.9% 100 ML IV ONE (08:43)
[2024-06-21] MEDS: Sodium Chloride 0.9% 1,000 ML IV ONE (08:44)
[2024-06-21 08:52] LABS: BASOPHILS ABSOLUTE AUTO 0.07 K/uL (0.00-0.20); BASOPHILS PERCENT AUTO 0.4 % (0.0-1.0); EOSINOPHILS ABSOLUTE AUTO 0.32 K/uL (0.00-0.45); EOSINOPHILS PERCENT AUTO 1.8 % (0.0-6.0); HEMATOCRIT 41.4 % (37.0-47.0); HEMOGLOBIN 14.2 g/dL (12.0-16.0); IMMATURE GRAN ABSOLUTE AUTO 0.08 K/uL (0.00-0.05); IMMATURE GRAN PERCENT AUTO 0.5 % (0.0-0.4); LYMPHOCYTES ABSOLUTE AUTO 1.67 K/uL (1.00-4.80); LYMPHOCYTES PERCENT AUTO 9.4 % (24.0-44.0); MEAN CORPUSCULAR HEMOGLOBIN 31.2 pg (28.0-32.0); MEAN CORPUSCULAR HGB CONC 34.3 g/dL (32.0-36.0); MEAN PLATELET VOLUME 10.8 fL (9.4-12.3); MONOCYTES ABSOLUTE AUTO 0.89 K/uL (0.00-0.80); NEUTROPHILS ABSOLUTE AUTO 14.72 K/uL (1.80-7.70); NEUTROPHILS PERCENT AUTO 82.9 % (41.0-71.0); PLATELET COUNT,PLT 330 K/uL (150-400); RED BLOOD CELL COUNT 4.55 M/uL (4.10-5.30); WHITE BLOOD CELL COUNT,WBC 17.75 K/uL (3.9-11.3)
[2024-06-21 09:24] LABS: ALBUMIN 3.8 g/dL (3.4-5.0); BILIRUBIN TOTAL 0.5 mg/dL (0.2-1.0); C-REACTIVE PROTEIN 7.06 mg/dL (<0.3); CALCIUM 9.1 mg/dL (8.5-10.1); CARBON DIOXIDE,CO2 26.7 mmol/L (21.0-32.0); CREATININE 0.8 mg/dL (0.6-1.0); EST CRCL DRUG DOSING (CG) 88.15 mL/min; POTASSIUM,K 4.1 mmol/L (3.5-5.1); PROTEIN TOTAL,TP 8.9 g/dL (6.4-8.2)
[2024-06-21] MEDS: Iopamidol 755 MG/ML 500 ML Multipack Bottle IVPUSH STA (09:29)
[2024-06-21 09:36] LABS: A/G RATIO 0.8 (0.9-1.6)
[2024-06-21] MEDS ORDERED: Benzocaine 20% Topical Spray UD MUCMEM ONE (09:41)
[2024-06-21] MEDS: Lidocaine 1% 10 ML MDV INFILT ONE (12:10)
[2024-06-21] MEDS: Benzocaine 20% Topical Spray UD MUCMEM ONE (12:13)
== END 2024-06-21 14:05 | disposition left against medical advice (07) ==
LOC: MW.ED 07:54
DX: J02.0 Streptococcal pharyngitis (principal); J36 Peritonsillar abscess; F17.210 Nicotine dependence, cigarettes, uncomplicated
CPT/HCPCS: 36415; 42700; 70491; 80053; 81025; 85025; 85652; 86140; 87040; 87428; 87651; 96365; 96375; 99284; A9270; J0295; J1100; J1885; J3490; J7030; Q9967